=== PATIENT | female | born 1940 | race American Indian/Alaskan Native ===

== ENCOUNTER 2018-10-18 21:34 | Observation (INO) | payer MEDICARE ==
[2018-10-18 21:35] VITALS: BMI 33.3
--- NOTE | 2018-10-18 22:17 | C.PDOC ---
History Of Present Illness 78 year old female presents to the ER with a complaint of SOB and diaphoresis on exertion for the past few days, associated with intermittent palpitations. Denies chest pain. Chief Complaint (Nursing): Palpitations History Per: Patient History/Exam Limitations: no limitations Onset/Duration Of Symptoms: Days Current Symptoms Are (Timing): Still Present Initiating Event: Other (Not known) Exacerbating Factor(s): Exertion Current Respiratory Medications: See Home Med List Associated Symptoms: Sweating, Other (Palpitation). denies: Chest Pain Recent travel outside of the [place]: No Past Medical History Reviewed: Historical Data, Nursing Documentation, Vital Signs Vital Signs: Last Vital Signs Temp 97.8 F 10/18/18 21:40 Pulse 60 10/18/18 21:40 Resp 20 10/18/18 21:40 BP 216/78 H 10/18/18 21:40 Pulse Ox 99 10/18/18 21:40 - Medical History PMH: Fractures (toes), HTN, Hypercholesterolemia, Peripheral Edema Surgical History: Endoscopy - [facility] Procedures ANGIOPLASTY OF OTHER NON-CORONARY VESSEL(S) (07/25/15) CONTRAST ARTERIOGRAM-LEG (04/04/15) INSEJ [id number] PERIPHERAL NON-CORONARY VES STENT(S) (07/25/15) INSERTION OF TWO VASCULAR STENTS (07/25/15) PROCEDURE ON TWO VESSELS (07/25/15) Family History: States: Unknown Family Hx - Social History Hx Alcohol Use: No Hx Substance Use: No Review Of Systems Constitutional: Positive for: Sweats Cardiovascular: Positive for: Palpitations (Intermittent). Negative for: Chest Pain Respiratory: Positive for: SOB with Excertion Gastrointestinal: Negative for: Nausea, Vomiting Genitourinary: Negative for: Dysuria, Hematuria Neurological: Negative for: Weakness, Numbness Physical Exam - Physical Exam Appears: Non-toxic, No Acute Distress Skin: Normal Color, Warm, Dry Head: Atraumatic, Normacephalic Eye(s): bilateral: Normal Inspection Oral Mucosa: Moist Neck: Normal, Supple Chest: Symmetrical, No Tenderness Cardiovascular: Rhythm Regular Respiratory: Normal Breath Sounds, No Rales, No Rhonchi, No Wheezing Gastrointestinal/Abdominal: Soft, No Tenderness Back: No CVA Tenderness Extremity: Normal ROM (x4) Neurological/Psych: Oriented x3, Normal Speech ED Course And Treatment - Laboratory Results Result Diagrams: 12/04/18 22:35 10/18/18 22:35 ECG: Interpreted By Me, Viewed By Me ECG Rhythm: Sinus Bradycardia, 1st Degree HB ECG Interpretation: No Acute Changes Interpretation Of ECG: Sinus bradycardia with iSt degree AV block, LAD, RBBB.abnormal tracings. Rate From EC O2 Sat by Pulse Oximetry: 99 (Room air) Pulse Ox Interpretation: Normal - Radiology CXR: Interpreted by Me CXR Interpretation: Yes: No Acute Disease, Cardiomegaly, Other (globular heart,) Progress Note: EKG, blood work, and CXR ordered. Disposition Discussed With : Kacy Toussaint Doctor Will See Patient In The: Hospital Counseled Patient/Family Regarding: Diagnosis - Disposition Disposition: HOSPITALIZED Disposition Time: 00:31 Condition: STABLE Forms: [facility] (Liberian) - POA Present On Arrival: None - Clinical Impression Clinical Impression: Palpitations, Hypertension - Scribe Statement The provider has reviewed the documentation as recorded by the Scribsofía Angel All medical record entries made by the Linibsofía were at my direction and personally dictated by me. I have reviewed the chart and agree that the record accurately reflects my personal performance of the history, physical exam, medical decision making, and the department course for this patient. I have also personally directed, reviewed, and agree with the discharge instructions and disposition.
[2018-10-18 22:39] LABS: BASO # 0.1 K/uL (0.0-0.2); BASO % 0.6 % (0.0-2.0); EOS # 0.1 K/uL (0.0-0.7); EOS % 0.9 % (0.0-4.0); HEMOGLOBIN 11.3 g/dL (11.0-16.0); LYMPH # 2.8 K/uL (1.0-4.3); LYMPH % 32.4 % (20.0-40.0); MEAN CELL VOLUME 80.8 fL (81.0-99.0); MEAN CORPUSCULAR HEMOGLOBIN 26.2 pg (27.0-31.0); MEAN CORPUSCULAR HGB CONC 32.4 g/dL (33.0-37.0); MEAN PLATELET VOLUME 8.8 fL (7.2-11.7); MONO # 0.5 K/uL (0.0-0.8); MONO % 5.7 % (0.0-10.0); NEUT # 5.2 K/uL (1.8-7.0); NEUT % 60.4 % (50.0-75.0); RBC 4.31 Mil/uL (3.80-5.20); RED CELL DISTRIBUTION WIDTH 14.3 % (11.5-14.5); WHITE BLOOD COUNT 8.6 K/uL (4.8-10.8)
[2018-10-18 22:55] LABS: ALB/GLOB RATIO 1.2 (1.0-2.1); ALBUMIN 4.2 g/dL (3.5-5.0); ALT/SGPT 16 U/L (9-52); AST/SGOT 20 U/L (14-36); BLOOD UREA NITROGEN 21 mg/dL (7-17); CALCIUM 9.7 mg/dl (8.6-10.4); GFR NON-AFRICAN AMERICAN 53
[2018-10-18 23:08] LABS: D DIMER < 200 ng/mlDDU (0-243)
[2018-10-18 23:16] LABS: B-TYPE NATRIURETIC PEPTIDE 548 pg/mL (0-900)
[2018-10-18 23:35] LABS: PARTIAL THROMBOPLASTIN TIME 39 SECONDS (21-34); PROTHROMBIN TIME 10.7 SECONDS (9.7-12.2)
[2018-10-19 03:24] VITALS: RESP 20
[2018-10-19 08:42] LABS: CK-MB 0.74 ng/mL (0.0-3.38)
[2018-10-19] MEDS: (Novolog) Insulin Aspart, Recombinant 100 u/ml 10 ml vial SC SCH ×4 (08:55→21:36)
--- NOTE | 2018-10-19 09:38 | RAD ---
Chest x-ray two views HISTORY: Chest pain. COMPARISON: None available. FINDINGS: Mild venous congestion. Bibasilar breast shadows. Atherosclerotic calcification at the aortic knob. Tortuous aorta. Mild cardiomegaly. Degenerative changes in the spine and shoulders IMPRESSION: Mild venous congestion. Bibasilar breast shadows. Atherosclerotic calcification at the aortic knob. Tortuous aorta. Mild cardiomegaly.
[2018-10-19] MEDS ORDERED: Home Med 1 UNIT (Metformin [Glucophage] 1,000 MG) PO SCH (10:00)
[2018-10-19] MEDS: Cilostazol 50 mg Tab UD PO SCH ×2 (10:13→18:31)
--- NOTE | 2018-10-19 11:34 | CARD ---
APPROVED REPORT Date of service: 10/18/2018 EKG Measurement Heart [id number] <Conclusion> Sinus bradycardia with 1st degree AV block with premature atrial complexes Left axis deviation Right bundle branch block Minimal voltage criteria for LVH, may be normal variant Anterior infarct, age undetermined Abnormal ECG
--- NOTE | 2018-10-19 14:29 | CP.PCM.PN ---
Subjective - Date & Time of Evaluation Date of Evaluation: 10/19/18 Time of Evaluation: 09:20 - Subjective Subjective: Medicine progress note ( Dr. Toussaint's service) Patient was seen and examined at bedside. Patient reports that she is doing well with no acute issues or complain. Currently, patient denies any symptoms of chest pain, palpitations, shortness of breath, headache or blurry vision. HPI: Patient is a 78 year old AA female with past medical history of HTN, PVD, Right knee OA and DM, who was sent in by her PMD for elevated blood pressure with systolic in the 200s. In addition, patient has noted palpitations as well intermittently for a week. Patient states that BP check at home reads a systolic ranging in the 150s. Patient reports that she is compliant with her medications, however, she needs to work on her diet. On admission, patient states that she did have a diffuse headache, fatigue and palpitations. PMD: Dr. Toussaint PMHx: HTN, PVD, Right knee OA and DM PSHx: Right arm cyst removal, Attempted angioplasty of chronic total occulusion of the distal left superficial femoral artery (04/01) and Angioplasty of LLE vessels (07/2015) FHx: Mother, HTn, at age 97 Medications: Metoprolol succinate 100mg PO daily, Clonidine 0.2mg PO TID, Losartan 100mg PO daily, Hydralazine 50mg PO TID, Cilostazol 50mg PO BID, Metformin 1,000mg PO BID and Glipizide 10mg PO daily Allergies: Iodine Social Hx: Retired, Lives alone. Denies current or former use of tobacco, illicit drugs and ETOH Objective - Vital Signs/Intake and Output Vital Signs (last 24 hours): Temp Pulse Resp BP Pulse Ox 98.3 F 59 L 20 188/78 H 95 10/19/18 08:02 10/19/18 08:02 10/19/18 08:02 10/19/18 08:02 10/19/18 08:02 - Medications Medications: Current Medications Aspirin (Aspirin Chewable) 81 mg PO DAILY [facility] Last Admin: 10/19/18 10:13 Dose: 81 mg Cilostazol (Pletal) 50 mg PO BID [facility] Last Admin: 10/19/18 10:13 Dose: 50 mg Clonidine HCl (Catapres) 0.2 mg PO TID [facility] Last Admin: 10/19/18 13:53 Dose: Not Given Glipizide (Glucotrol) 10 mg PO BID [facility] Last Admin: 10/19/18 10:13 Dose: 10 mg Heparin Sodium (Porcine) (Heparin) 5,000 units SC Q8 [facility] Last Admin: 10/19/18 13:49 Dose: 5,000 units Hydralazine HCl (Apresoline) 50 mg PO Q8 [facility] Last Admin: 10/19/18 13:49 Dose: 50 mg Insulin Aspart (Novolog) 0 unit SC ACHS [facility]; Protocol Last Admin: 10/19/18 12:36 Dose: 1 unit Losartan Potassium (Cozaar) 100 mg PO DAILY [facility] Last Admin: 10/19/18 10:13 Dose: 100 mg [facility] Labs Labs: 10/18/18 22:35 10/18/18 22:35 PT 10.7 SECONDS (9.7-12.2) 10/18/18 22:35 INR 1.0 10/18/18 22:35 APTT 39 SECONDS (21-34) H 10/18/18 22:35 - Constitutional Appears: Well, No Acute Distress - Head Exam Head Exam: ATRAUMATIC, NORMAL INSPECTION - Eye Exam Eye Exam: EOMI, Normal appearance - ENT Exam ENT Exam: Mucous Membranes Moist - Respiratory Exam Respiratory Exam: Clear to Ausculation Bilateral, NORMAL BREATHING PATTERN. absent: Decreased Breath Sounds, Prolonged Expiratory Phase, Rhonchi, Wheezes, Respiratory Distress - Cardiovascular Exam Cardiovascular Exam: REGULAR RHYTHM, +S1, +S2 - GI/Abdominal Exam GI & Abdominal Exam: Soft, Normal Bowel Sounds. absent: Distended, Firm, Guarding, Rigid, Tenderness - Extremities Exam Extremities Exam: Normal Inspection. absent: Calf Tenderness, Pedal Edema - Back Exam Back Exam: NORMAL INSPECTION. absent: CVA tenderness (L), CVA tenderness (R) - Neurological Exam Neurological Exam: Alert, Awake, Oriented x3 - Psychiatric Exam Psychiatric exam: Normal Affect - Skin Skin Exam: Normal Color Assessment and Plan (1) Uncontrolled hypertension Assessment & Plan: Consultation: - Cardiology, Dr. Jones---> Help appreciated * Management as per recommendation Monitor with Vital signs Q4H Clonidine 0.2mg PO TID Hydralazine 50mg PO Q8H Cozaar 100mg PO daily ASA 81mg PO daily Status: Acute (2) Bradycardia with 51-60 beats per minute Assessment & Plan: Asymptomatic Consultation: - Cardiology, Dr. Jones---> Help appreciated * Management as per recommendation Status: Acute (3) Diabetes mellitus Assessment & Plan: Metformin 1,000mg PO BID Glipizide 10mg PO daily Accuchecks ACHS Status: Acute (4) History of peripheral vascular disease Assessment & Plan: Stents placement 2014 ASA 81mg PO daily Cilostazol 50mg PO BID Status: Acute (5) Prophylactic measure Assessment & Plan: GI: Not indicated DVT: Heparin 5,000 units SC Q8H All plans and management discussed with Dr. Toussaint Status: Acute
[2018-10-19 17:41] LABS: CK-MB 0.84 ng/mL (0.0-3.38)
--- NOTE | 2018-10-19 18:28 | CP.PCM.CON ---
History of Present Illness - History of Present Illness History of Present Illness: I was asked to see patient by Dr Toussaint. Patient was seen 10/19/181824 Patient is a 78 year old female with HTN, hypercholesterolemnia, CAD s/p endovascular intervention of the left lower extremity who presents withuncontrolled HTN. The patient was going to her doctor's office for a routine visit, when she developed progressive headaceh. 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 She had associated chest pain. The patient presented to the hospital for furhter management. SHe is currently sitting in bed with family at the bedside. Review of Systems - Constitutional Constitutional: absent: As Per HPI, Anorexia, Chills, Daytime Sleepiness, Excessive Sweating, Fatigue, Fever, Frequent Falls, Headache, Increased Appetite, Lethargy, Malaise, Night Sweats, Snoring, Sleep Apnea, Weight Gain, Weight Loss, Weakness, Other - EENT Eyes: absent: As Per HPI, Blind Spots, Blurred Vision, Change in Vision, Decreased Night Vision, Diplopia, Discharge, Dry Eye, Exophthalmos, Floaters, Irritation, Itchy Eyes, Loss of Peripheral Vision, Pain, Photophobia, Requires Corrective Lenses, Sees Flashes, Spots in Vision, Tunnel Vision, Other Visual Disturbances, Loss of Vision, Other Ears: absent: As Per HPI, Decreased Hearing, Ear Discharge, Ear Pain, Tinnitus, Abnormal Hearing, Disequilibrium, Dizziness, Other Nose/Mouth/Throat: absent: As Per HPI, Epistaxis, Nasal Congestion, Nasal Discharge, Nasal Obstruction, Nasal Trauma, Nose Pain, Post Nasal Drip, Sinus Pain, Sinus Pressure, Bleeding Gums, Change in Voice, Dental Pain, Dry Mouth, Dysphagia, Halitosis, Hoarsness, Lip Swelling, Mouth Lesions, Mouth Pain, Odynophagia, Sore Throat, Throat Swelling, Tongue Swelling, Facial Pain, Neck Pain, Neck Mass, Other - Breasts Breasts: absent: As Per HPI, Change in Shape, Mass, Pain, Nipple Discharge, Nipple Inversion, Skin Changes, Swelling, Other - Cardiovascular Cardiovascular: absent: As Per HPI, Acrocyanosis, Chest Pain, Chest Pain at Rest, Chest Pain with Activity, Claudication, Diaphoresis, Dyspnea, Dyspnea on Exertion, Edema, Irregular Heart Rhythm, Pain Radiating to Arm/Neck/Jaw, Leg Edema, Leg Ulcers, Lightheadedness, Orthopnea, Palpitations, Paroxysmal Nocturnal Dyspnea, Pedal Edema, Radiating Pain, Rapid Heart Rate, Slow Heart Rate, Syncope, Other - Respiratory Respiratory: absent: As Per HPI, Cough, Dyspnea, Hemoptysis, Dyspnea on Exer tion, Wheezing, Snoring, Stridor, Pain on Inspiration, Chest Congestion, Excessive Mucous Production, Change in Mucous Color, Pain with Coughing, Other - Gastrointestinal Gastrointestinal: absent: As Per HPI, Abdominal Pain, Belching, Bloating, Change in Bowel Habits, Change in Stool Character, Coffee Ground Emesis, Constipation, Cramping, Diarrhea, Dyspepsia, Dysphagia, Early Satiety, Excessive Flatus, Fecal Incontinence, Heartburn, Hematemesis, Hematochezia, Loose Stools, Melena, Nausea, Odynophagia, Temesmus, Vomiting, Other - Genitourinary Genitourinary: absent: As Per HPI, Change in Urinary Stream, Difficulty Urinating, Dysuria, Flank Pain, Hematuria, Pyuria, Nocturia, Urinary Incontinence, Urinary Frequency, Urinary Hesitance, Urinary Urgency, Voiding Freq/Small Amts, Freq UTI, Hx Renal/Bladder Calculi, Hx /Renal Surgery, Bladder Distension, Other - Musculoskeletal Musculoskeletal: absent: As Per HPI, Abnormal Gait, Arthralgias, Atrophy, Back Pain, Deformity, Joint Swelling, Limited Range of Motion, Loss of Height, Muscle Cramps, Muscle Weakness, Myalgias, Neck Pain, Numbness, Radiating Pain into Limb, Stiffness, Tingling, Other - Integumentary Integumentary: absent: As Per HPI, Acne, Alopecia, Bleeding Lesions, Change in Hair, Change in Nails, Change in Pigmentation, Changing Lesions, Dry Skin, Erythema, Furuncle, Hirsutism, Lesions, New Lesions, Non-Healing Lesions, Photosensitivity, Pruritus, Rash, Skin Pain, Skin Ulcer, Sores, Striae, Swelling, Unusual Bruising, Wounds, Jaundice, Other - Neurological Neurological: absent: As Per HPI, Abnormal Gait, Abnormal Hearing, Abnormal Movements, Abnormal Speech, Behavioral Changes, Burning Sensations, Confusion, Convulsions, Disequilibrium, Dizziness, Numbness, Focal Weakness, Frequent Falls, Headaches, Lack of Coordination, Loss of Vision, Memory Loss, Paresthesias, Radicular Pain, Restless Legs, Sensory Deficit, Syncope, Tingling, Tremor, Vertigo, Weakness, Other Visual Disturbances, Other - Psychiatric Psychiatric: absent: As Per HPI, Abnormal Sleep Pattern, Anhedonia, Anxiety, Auditory Hallucinations, Behavioral Changes, Change in Appetite, Change in Libido, Confusion, Depression, Difficulty Concentrating, Hallucinations, Homicidal Ideation, Hopelessness, Irritability, Memory Loss, Mood Swings, Panic Attacks, Paranoia, Suicidal Ideation, Visual Hallucinations, Tactile Hallucinations, Other - Endocrine Endocrine: absent: As Per HPI, Change in Body Appearance, Change in Libido, Cold Intolorance, Deepening of Voice, Excessive Sweating, Fatigue, Flushing, Heat Intolorance, Increase in Ring/Shoe/Hat Size, Palpitations, Polydipsia, Polyphagia, Polyuria, Other - Hematologic/Lymphatic Hematologic: absent: As Per HPI, Easy Bleeding, Easy Bruising, Lymphadenopathy, Other Past Patient History - Infectious Disease Hx of Infectious Diseases: None - Past Medical History & Family History Past Medical History?: Yes - Past Social History Smoking Status: Never Smoked - CARDIAC Hx Hypercholesterolemia: Yes Hx Hypertension: Yes - HEENT Hx HEENT Problems: No - ENDOCRINE/METABOLIC Hx Endocrine Disorders: Yes Hx Diabetes Mellitus Type 2: Yes - INTEGUMENTARY Hx Dermatological Problems: No - MUSCULOSKELETAL/RHEUMATOLOGICAL Hx Fractures: Yes (toes) - GENITOURINARY/GYNECOLOGICAL Hx Genitourinary Disorders: No - PSYCHIATRIC Hx Substance Use: No - SURGICAL HISTORY Hx Surgeries: Yes Hx Angiogram: Yes Hx Breast Biopsy: Yes Other/Comment: cyst from arm - ANESTHESIA Hx Anesthesia: Yes Hx Anesthesia Reactions: No Hx Malignant Hyperthermia: No Meds Allergies/Adverse Reactions: Allergies Allergy/AdvReac Type Severity Reaction Status Date / Time iodine Allergy Verified 10/18/18 21:45 - Medications Medications: Current Medications Aspirin (Aspirin Chewable) 81 mg PO DAILY [facility] Last Admin: 10/19/18 10:13 Dose: 81 mg Cilostazol (Pletal) 50 mg PO BID [facility] Last Admin: 10/19/18 10:13 Dose: 50 mg Clonidine HCl (Catapres) 0.2 mg PO TID [facility] Last Admin: 10/19/18 14:54 Dose: 0.2 mg Glipizide (Glucotrol) 10 mg PO BID [facility] Last Admin: 10/19/18 10:13 Dose: 10 mg Heparin Sodium (Porcine) (Heparin) 5,000 units SC Q8 [facility] Last Admin: 10/19/18 13:49 Dose: 5,000 units Hydralazine HCl (Apresoline) 100 mg PO Q8 [facility] Insulin Aspart (Novolog) 0 unit SC ACHS [facility]; Protocol Last Admin: 10/19/18 12:36 Dose: 1 unit Losartan Potassium (Cozaar) 100 mg PO DAILY [facility] Last Admin: 10/19/18 10:13 Dose: 100 mg Metformin HCl (Glucophage) 1,000 mg PO BIDCC [facility] Physical Exam - Constitutional Appears: Non-toxic - Head Exam Head Exam: NORMAL INSPECTION - Eye Exam Eye Exam: Normal appearance - ENT Exam ENT Exam: Mucous Membranes Moist, Normal Exam, Normal Oropharynx - Neck Exam Neck exam: Positive for: Full Rom, Normal Inspection. Negative for: Lymphadenopathy, Thyromegaly - Respiratory Exam Respiratory Exam: Clear to Auscultation Bilateral, NORMAL BREATHING PATTERN. absent: Rales, Rhonchi - Cardiovascular Exam Cardiovascular Exam: REGULAR RHYTHM, Systolic Murmur - GI/Abdominal Exam GI & Abdominal Exam: Normal Bowel Sounds, Soft - Rectal Exam Rectal Exam: Deferred - Extremities Exam Extremities exam: Positive for: full ROM, normal inspection. Negative for: pedal edema - Back Exam Back exam: NORMAL INSPECTION - Neurological Exam Neurological exam: Alert, Normal Gait, Oriented x3 - Psychiatric Exam Psychiatric exam: Normal Affect, Normal Mood - Skin Skin Exam: Normal Color Results - Vital Signs Recent Vital Signs: Last Vital Signs Temp 97.9 F 10/19/18 16:00 Pulse 58 L 10/19/18 16:00 Resp 20 10/19/18 16:00 BP 187/69 H 10/19/18 16:00 Pulse Ox 97 10/19/18 16:00 - Labs Result Diagrams: 10/18/18 22:35 10/18/18 22:35 Labs: Laboratory Results - last 24 hr 10/18/18 10/18/18 10/18/18 22:35 22:35 22:35 WBC 8.6 RBC 4.31 Hgb 11.3 Hct 34.8 MCV 80.8 L MCH 26.2 L MCHC 32.4 L RDW 14.3 Plt Count 248 MPV 8.8 Neut % (Auto) 60.4 Lymph % (Auto) 32.4 [place] % (Auto) 5.7 Eos % (Auto) 0.9 Baso % (Auto) 0.6 Neut # (Auto) 5.2 Lymph # (Auto) 2.8 [place] # (Auto) 0.5 Eos # (Auto) 0.1 Baso # (Auto) 0.1 PT 10.7 INR 1.0 APTT 39 H D-Dimer, Quantitative < 200 Sodium 138 Potassium 4.4 Chloride 97 L Carbon Dioxide 29 Anion Gap 16 BUN 21 H Creatinine 1.0 Est GFR ( Amer) > 60 Est GFR (Non-Af Amer) 53 POC Glucose (mg/dL) Random Glucose 192 H Hemoglobin A1c Calcium 9.7 Total Bilirubin 0.5 AST 20 ALT 16 Alkaline Phosphatase 51 Total Creatine Kinase CK-MB (Mass) Troponin I < 0.0120 NT-Pro-B Natriuret Pep 548 Total Protein 7.8 Albumin 4.2 Globulin 3.6 Albumin/Globulin Ratio 1.2 10/19/18 10/19/18 10/19/18 06:07 07:58 11:41 WBC RBC Hgb Hct MCV MCH MCHC RDW Plt Count MPV Neut % (Auto) Lymph % (Auto) [place] % (Auto) Eos % (Auto) Baso % (Auto) Neut # (Auto) Lymph # (Auto) [place] # (Auto) Eos # (Auto) Baso # (Auto) PT INR APTT D-Dimer, Quantitative Sodium Potassium Chloride Carbon Dioxide Anion Gap BUN Creatinine Est GFR ( Amer) Est GFR (Non-Af Amer) POC Glucose (mg/dL) 158 H 188 H Random Glucose Hemoglobin A1c Calcium Total Bilirubin AST ALT Alkaline Phosphatase Total Creatine Kinase 50 CK-MB (Mass) 0.74 Troponin I < 0.0120 NT-Pro-B Natriuret Pep Total Protein Albumin Globulin Albumin/Globulin Ratio 10/19/18 10/19/18 10/19/18 16:49 16:56 16:56 WBC RBC Hgb Hct MCV MCH MCHC RDW Plt Count MPV Neut % (Auto) Lymph % (Auto) [place] % (Auto) Eos % (Auto) Baso % (Auto) Neut # (Auto) Lymph # (Auto) [place] # (Auto) Eos # (Auto) Baso # (Auto) PT INR APTT D-Dimer, Quantitative Sodium Potassium Chloride Carbon Dioxide Anion Gap BUN Creatinine Est GFR ( Amer) Est GFR (Non-Af Amer) POC Glucose (mg/dL) 215 H Random Glucose Hemoglobin A1c 8.2 H Calcium Total Bilirubin AST ALT Alkaline Phosphatase Total Creatine Kinase 53 CK-MB (Mass) 0.84 Troponin I < 0.0120 NT-Pro-B Natriuret Pep Total Protein Albumin Globulin Albumin/Globulin Ratio - EKG Data EKG Interpreted by: Myself EKG shows normal: Sinus rhythm Assessment & Plan (1) Hypertension Assessment and Plan: will need improved blood pressure control..will change hydralazine to 100 mg TID Status: Acute (2) Hypercholesterolemia Assessment and Plan: recommend statin therapy. goal LDL <100 Status: Acute (3) Peripheral vascular disease Assessment and Plan: previous intervention of the L SFA and popliteal. ASA/Plavix. outaptient vascular testing Status: Acute (4) Chest pain Assessment and Plan: negative cardiac enzymes. stress test last year was negative for ischemia. likely can d/c home tomorrow if blood pressure controlled. Status: Acute
[2018-10-20 08:04] VITALS: TEMP 98
[2018-10-20 08:14] LABS: BASO # 0.1 K/uL (0.0-0.2); BASO % 1.2 % (0.0-2.0); EOS # 0.1 K/uL (0.0-0.7); EOS % 1.2 % (0.0-4.0); HEMOGLOBIN 11.6 g/dL (11.0-16.0); LYMPH # 3.5 K/uL (1.0-4.3); LYMPH % 43.6 % (20.0-40.0); MEAN CELL VOLUME 81.6 fL (81.0-99.0); MEAN CORPUSCULAR HEMOGLOBIN 26.8 pg (27.0-31.0); MEAN CORPUSCULAR HGB CONC 32.8 g/dL (33.0-37.0); MEAN PLATELET VOLUME 8.9 fL (7.2-11.7); MONO # 0.4 K/uL (0.0-0.8); MONO % 5.1 % (0.0-10.0); NEUT % 48.9 % (50.0-75.0); RBC 4.34 Mil/uL (3.80-5.20); RED CELL DISTRIBUTION WIDTH 14.4 % (11.5-14.5); WHITE BLOOD COUNT 8.1 K/uL (4.8-10.8)
[2018-10-20] MEDS: (Novolog) Insulin Aspart, Recombinant 100 u/ml 10 ml vial SC SCH ×2 (09:06→12:47)
[2018-10-20 09:16] LABS: ALB/GLOB RATIO 1.1 (1.0-2.1); ALBUMIN 3.8 g/dL (3.5-5.0); ALT/SGPT 17 U/L (9-52); AST/SGOT 21 U/L (14-36); BLOOD UREA NITROGEN 21 mg/dL (7-17); CALCIUM 9.4 mg/dl (8.6-10.4); GFR NON-AFRICAN AMERICAN > 60
--- NOTE | 2018-10-20 10:09 | HP ---
HISTORY OF PRESENT ILLNESS: An 78-year-old female admitted to the hospital with chief complaint of cardiac arrhythmia, uncontrolled hypertension. The patient came to the ER, advised admission. The patient used clonidine, Lopressor, and hydralazine. PHYSICAL EXAMINATION: GENERAL: The patient is awake, alert, and oriented. VITAL SIGNS: Temperature 98, pulse 90. HEENT: Within normal limits. NECK: Supple. CHEST: Symmetrical. HEART: Regular. ABDOMEN: Soft. EXTREMITIES: No edema. The patient with uncontrolled hypertension, cardiac arrhythmia. The patient to be in bed rest, supportive care, cardiac evaluation. Kacy oTussaint MD
[2018-10-20] MEDS: Cilostazol 50 mg Tab UD PO SCH (10:49)
--- NOTE | 2018-10-20 11:13 | CP.PCM.PN ---
Subjective - Date & Time of Evaluation Date of Evaluation: 10/20/18 Time of Evaluation: 07:00 - Subjective Subjective: Resident Progress Note for Dr. Toussaint Patient seen and examined at bedside. No acute events reported overnight. Patient is resting in bed comfortably. She denies having dizziness, headache, shortness of breath, nausea, vomiting, abdominal pain, or vision changes. Objective - Vital Signs/Intake and Output Vital Signs (last 24 hours): Temp Pulse Resp BP Pulse Ox 98.0 F 71 20 165/66 H 98 10/20/18 07:35 10/20/18 07:35 10/20/18 07:35 10/20/18 07:35 10/20/18 07:35 - Medications Medications: Current Medications Aspirin (Aspirin Chewable) 81 mg PO DAILY [facility] Last Admin: 10/20/18 10:49 Dose: 81 mg Cilostazol (Pletal) 50 mg PO BID [facility] Last Admin: 10/20/18 10:49 Dose: 50 mg Clonidine HCl (Catapres) 0.2 mg PO TID [facility] Last Admin: 10/20/18 10:49 Dose: 0.2 mg Glipizide (Glucotrol) 10 mg PO BID [facility] Last Admin: 10/20/18 10:49 Dose: 10 mg Heparin Sodium (Porcine) (Heparin) 5,000 units SC Q8 [facility] Last Admin: 10/20/18 05:54 Dose: 5,000 units Hydralazine HCl (Apresoline) 100 mg PO Q8 [facility] Last Admin: 10/20/18 05:55 Dose: 100 mg Insulin Aspart (Novolog) 0 unit SC [facility]; Protocol Last Admin: 10/20/18 09:06 Dose: 1 unit Losartan Potassium (Cozaar) 100 mg PO DAILY [facility] Last Admin: 10/20/18 10:49 Dose: 100 mg [facility] Admin: 10/20/18 09:06 Dose: 1,000 mg - Labs Labs: 10/20/18 08:07 10/20/18 08:07 PT 10.7 SECONDS (9.7-12.2) 10/18/18 22:35 INR 1.0 10/18/18 22:35 APTT 39 SECONDS (21-34) H 10/18/18 22:35 - Additional Findings Additional findings: - Constitutional Appears: Well, No Acute Distress - Head Exam Head Exam: ATRAUMATIC, NORMAL INSPECTION - Eye Exam Eye Exam: EOMI, Normal appearance - ENT Exam ENT Exam: Mucous Membranes Moist - Respiratory Exam Respiratory Exam: Clear to Ausculation Bilateral, NORMAL BREATHING PATTERN. absent: Decreased Breath Sounds, Prolonged Expiratory Phase, Rhonchi, Wheezes, Respiratory Distress - Cardiovascular Exam Cardiovascular Exam: REGULAR RHYTHM, +S1, +S2 - GI/Abdominal Exam GI & Abdominal Exam: Soft, Normal Bowel Sounds. absent: Distended, Firm, Guarding, Rigid, Tenderness - Extremities Exam Extremities Exam: Normal Inspection. absent: Calf Tenderness, Pedal Edema - Back Exam Back Exam: NORMAL INSPECTION. absent: CVA tenderness (L), CVA tenderness (R) - Neurological Exam Neurological Exam: Alert, Awake, Oriented x3 - Psychiatric Exam Psychiatric exam: Normal Affect - Skin Skin Exam: Normal Color Assessment and Plan - Assessment and Plan (Free Text) Assessment: Assessment and Plan (1) Uncontrolled hypertension Assessment & Plan: BP improved today Consultation: - Cardiology, Dr. Jones---> Help appreciated * Management as per recommendation Monitor with Vital signs Q4H Clonidine 0.2mg PO TID Hydralazine 100mg PO Q8H Cozaar 100mg PO daily ASA 81mg PO daily (2) Bradycardia with 51-60 beats per minute Assessment & Plan: Asymptomatic Consultation: - Cardiology, Dr. Jones---> Help appreciated * Management as per recommendation (3) Diabetes mellitus Assessment & Plan: Metformin 1,000mg PO BID Glipizide 10mg PO daily Accuchecks ACHS (4) History of peripheral vascular disease Assessment & Plan: Stents placement 2014 ASA 81mg PO daily Cilostazol 50mg PO BID (5) Prophylactic measure Assessment & Plan: GI: Not indicated DVT: Heparin 5,000 units SC Q8H Dispo: Patient will be discharged home with Losartan/Hctz 100-25mg. Follow up instructions were given to the patient. All plans and management discussed with Dr. Toussaint
--- NOTE | 2018-10-20 17:00 | CARD ---
APPROVED REPORT Date of service: 10/19/2018 EXAM: Two-dimensional and M-mode echocardiogram with Doppler and color Doppler. Other Information Quality : GoodRhythm : INDICATION Palpitations RISK FACTORS Hypertension 2D DIMENSIONS IVSd1.1 (0.7-1.1cm)LVDd4.5 (3.9-5.9cm) PWd1.1 (0.7-1.1cm)LA Ygyhuo69 (18-58mL) LVDs2.8 (2.5-4.0cm)FS (%) 36.9 % LVEF (%)66.9 (>50%)LVEF (Smith's)75 % M-Mode DIMENSIONS Left Atrium (MM)3.26 (2.5-4.0cm)IVSd1.01 (0.7-1.1cm) Aortic Root2.96 (2.2-3.7cm)LVDd5.41 (4.0-5.6cm) Aortic Cusp Exc.1.77 (1.5-2.0cm)PWd0.86 (0.7-1.1cm) FS (%) 49 %LVDs2.78 (2.0-3.8cm) LVEF (%)80 (>50%) Mitral Valve MV E Ieapaxjo062.1cm/sMV A Rbwkxiky990.3cm/sE/A ratio1.0 TDI Lateral E' Peak V4.61cm/sMedial E' Peak V3.99cm/sE/Lateral E'25.6 E/Medial E'29.6 Tricuspid Valve TR Peak Fsajdkyg310pj/sTR Peak Gr.[id number] LEFT VENTRICLE The left ventricle is normal size. There is normal left ventricular wall thickness. The Ejection Fraction is 60-65%. There is normal LV segmental wall motion. Transmitral Doppler flow pattern is Grade II-pseudonormal filling dynamics. The left atrial pressure is moderately elevated. RIGHT VENTRICLE The right ventricle is normal size. The right ventricular systolic function is normal. ATRIA The left atrium size is normal. The right atrium size is normal. The interatrial septum is intact with no evidence for an atrial septal defect. AORTIC VALVE The aortic valve is moderately calcified. The aortic valve is trileaflet. No aortic regurgitation is present. MITRAL VALVE The mitral valve is normal in structure. Mitral regurgitation is mild. TRICUSPID VALVE The tricuspid valve is normal in structure. There is mild tricuspid regurgitation. Right ventricular systolic pressure is estimated at 47 mmHg. There is moderate pulmonary hypertension. PULMONIC VALVE The pulmonary valve is normal in structure. There is mild pulmonic valvular regurgitation. GREAT VESSELS The aortic root is normal size. The aortic root displays mild to moderate sclerocalcific changes of the aortic root. ivc is mildly dilated. PERICARDIAL EFFUSION There is no pericardial effusion. <Conclusion> The left ventricle is normal size. The Ejection Fraction is 60-65%. Transmitral Doppler flow pattern is Grade II-pseudonormal filling dynamics. The left atrial pressure is moderately elevated. The aortic valve is moderately calcified. Mitral regurgitation is mild. There is mild tricuspid regurgitation. Right ventricular systolic pressure is estimated at 47 mmHg. There is moderate pulmonary hypertension. The aortic root is normal size. The aortic root displays mild to moderate sclerocalcific changes of the aortic root. ivc is mildly dilated. There is no pericardial effusion.
[2018-10-20 17:18] VITALS: BP 201/76; PULSE 84; O2SAT 93
== END 2018-10-20 15:00 | disposition home or self-care (01) ==
LOC: C.ER 21:34 → C.5S 10-19 00:32
PROVIDERS: ADMIT Internal Medicine Pulmonary Disease; ATTEND Internal Medicine Pulmonary Disease
DX: I10 Essential (primary) hypertension (principal); E11.51 Type 2 diabetes mellitus with diabetic peripheral angiopathy without gangrene; E78.00 Pure hypercholesterolemia, unspecified; I25.10 Atherosclerotic heart disease of native coronary artery without angina pectoris; M17.11 Unilateral primary osteoarthritis, right knee; I71.9 Aortic aneurysm of unspecified site, without rupture; I49.9 Cardiac arrhythmia, unspecified
CPT/HCPCS: 36415; 71046; 80053; 82948; 83036; 83735; 83880; 84100; 84484; 85025; 85378; 85610; 85730; 93005; 93306; 97116; 97162; 97530; 99285; G0378; G8978; G8979; J1644

== ENCOUNTER 2019-01-02 13:22 | Inpatient (IN) | payer MEDICARE ==
[2019-01-02 13:23] VITALS: BMI 33.3
[2019-01-02] MEDS ORDERED: Sodium Chloride 0.9% 1,000 ML IV ONE (13:50)
[2019-01-02 14:18] LABS: BASO % 0.3 % (0.0-2.0); LYMPH # 1.1 K/uL (1.0-4.3); LYMPH % 14.1 % (20.0-40.0); MEAN CELL VOLUME 82.9 fL (81.0-99.0); MEAN CORPUSCULAR HEMOGLOBIN 26.1 pg (27.0-31.0); MEAN CORPUSCULAR HGB CONC 31.4 g/dL (33.0-37.0); MEAN PLATELET VOLUME 9.4 fL (7.2-11.7); MONO # 0.2 K/uL (0.0-0.8); MONO % 2.1 % (0.0-10.0); NEUT # 6.7 K/uL (1.8-7.0); NEUT % 83.5 % (50.0-75.0); RBC 5.26 Mil/uL (3.80-5.20); RED CELL DISTRIBUTION WIDTH 14.5 % (11.5-14.5)
[2019-01-02 14:19] LABS: HEMOGLOBIN 13.7 g/dL (11.0-16.0)
[2019-01-02 14:31] LABS: ALB/GLOB RATIO 1.2 (1.0-2.1); ALT/SGPT < 6 U/L (9-52); AST/SGOT 26 U/L (14-36); BLOOD UREA NITROGEN 17 mg/dL (7-17); GFR NON-AFRICAN AMERICAN > 60; LIPASE 34 U/L (23-300)
[2019-01-02 14:43] LABS: B-TYPE NATRIURETIC PEPTIDE 565 pg/mL (0-900)
[2019-01-02 16:01] LABS: SQUAMOUS EPITHIAL 1 /hpf (0-5); URINE BACTERIA RARE (<OCC); URINE BILIRUBIN NEGATIVE (NEGATIVE); URINE BLOOD NEGATIVE (NEGATIVE); URINE CLARITY Clear (Clear); URINE COLOR Straw (YELLOW); URINE GLUCOSE (UA) 3+ mg/dL (Normal); URINE LEUKOCYTE ESTERASE NEG Leu/uL (Negative); URINE PROTEIN 2+ mg/dL (NEGATIVE); URINE UROBILINOGEN NORMAL mg/dL (0.2-1.0)
--- NOTE | 2019-01-02 16:20 | CT ---
PROCEDURE: CT Abdomen and Pelvis without Oral or IV contrast. HISTORY: nausea/vomiting COMPARISON: CT abdomen and pelvis with IV contrast performed 12/30/16 TECHNIQUE: Contiguous axial images of the abdomen and pelvis. No oral or IV contrast administered. Coronal and Sagittal reformats generated and reviewed. Radiation dose: Total exam DLP = 1144.86 mGy-cm. This CT exam was performed using one or more of the following dose reduction techniques: Automated exposure control, adjustment of the mA and/or kV according to patient size, and/or use of iterative reconstruction technique. FINDINGS: There is limited evaluation of the solid organs without the administration of IV contrast. LOWER THORAX: No visible consolidation, pleural effusion, or pneumothorax. Moderate hiatal hernia. LIVER: Unremarkable unenhanced appearance. GALLBLADDER AND BILE DUCTS: Unremarkable unenhanced appearance. PANCREAS: Unremarkable unenhanced appearance. SPLEEN: 9 mm probable splenule. Otherwise unremarkable unenhanced appearance. ADRENALS: Nodular hypertrophy of the left adrenal gland. Mild hypertrophy of the right adrenal gland. KIDNEYS AND URETERS: No hydronephrosis or obstructing renal calculus. BLADDER: The urinary bladder appears unremarkable. REPRODUCTIVE: Uterus is present. APPENDIX: The appendix appears within normal limits of caliber. No secondary signs of acute appendicitis. BOWEL: The stomach is nondistended. Lack of oral contrast limits evaluation for bowel pathology. The bowel loops appear within normal limits of caliber without evidence of intestinal obstruction. PERITONEUM: No significant free fluid. No definite free air. LYMPH NODES: No bulky lymphadenopathy identified. VASCULATURE: Atherosclerotic calcifications of the aorta and branches. No aortic aneurysm. BONES: Grade 1 anterolisthesis of L4 on L5. Mild degenerative changes. OTHER FINDINGS: Pelvic calcifications, likely phleboliths. IMPRESSION: Nodular hypertrophy of the left adrenal gland. Mild hypertrophy of the right adrenal gland. Moderate hiatal hernia. Additional incidental findings as above.
--- NOTE | 2019-01-02 17:26 | CP.PCM.HP ---
<Sariah Casillas - Last Filed: 01/02/19 19:13> History of Present Illness - History of Present Illness History of Present Illness: H&P note for Dr. Yin (covering for Dr. Toussaint) HPI: 78 year old female with past medical history of DM Type II, HTN, PVD who presents to the ER for vomiting and diarrhea. Patient states her symptoms started yesterday after she went out to eat lunch. She states she has not been able to stop vomiting since yesterday. She denies blood in her vomit. She st ates she has had multiple episodes of loose stools since yesterday evening and her previous bowel movement was this morning. She has not been able to eat, drink or take her medications due to the nausea and vomiting. She denies any sick contacts or anyone with similar symptoms. She denies chest pain, dyspnea, fever, chills or abdominal pain. PMD: Dr. Toussaint Past Medical History: DM Type II, HTN, PVD, Right knee OA Past Surgical History: Right arm cyst removal, Attempted angioplasty of chronic total occulusion of the distal left superficial femoral artery (04/01) and Angioplasty of LLE vessels (07/2015) Family History: Mother, HTn, at age 97 Medications: Clonidine 0.2mg PO TID, Losartan 100mg PO daily, HCTZ 25po daily; Hydralazine 100mg PO q8h, Cilostazol 50mg PO BID, Metformin 1,000mg PO BID; Glipizide 10mg PO bid; Simvastatin 20mg HS Allergies: Iodine Social History: Retired, Lives alone. Denies current or former use of tobacco. Denies illicit drug or alcohol use. Present on Admission - Present on Admission Any Indicators Present on Admission: No Review of Systems - Constitutional Constitutional: absent: Chills, Fever - Cardiovascular Cardiovascular: absent: Chest Pain, Dyspnea, Palpitations, Pedal Edema - Respiratory Respiratory: absent: Dyspnea - Gastrointestinal Gastrointestinal: Loose Stools, Nausea, Vomiting. absent: Constipation, Hematemesis, Hematochezia - Genitourinary Genitourinary: absent: Dysuria - Neurological Neurological: Headaches Past Patient History - Infectious Disease Hx of Infectious Diseases: None - Past Medical History & Family History Past Medical History?: Yes - Past Social History Smoking Status: Never Smoked - CARDIAC Hx Hypercholesterolemia: Yes Hx Hypertension: Yes - HEENT Hx HEENT Problems: No - ENDOCRINE/METABOLIC Hx Endocrine Disorders: Yes Hx Diabetes Mellitus Type 2: Yes - INTEGUMENTARY Hx Dermatological Problems: No - MUSCULOSKELETAL/RHEUMATOLOGICAL Hx Fractures: Yes (toes) - GENITOURINARY/GYNECOLOGICAL Hx Genitourinary Disorders: No - PSYCHIATRIC Hx Substance Use: No - SURGICAL HISTORY Hx Surgeries: Yes Hx Angiogram: Yes Hx Breast Biopsy: Yes Other/Comment: cyst from arm - ANESTHESIA Hx Anesthesia: Yes Hx Anesthesia Reactions: No Hx Malignant Hyperthermia: No Meds Allergies/Adverse Reactions: Allergies Allergy/AdvReac Type Severity Reaction Status Date / Time iodine Allergy Verified 01/02/19 13:39 Physical Exam - Constitutional Appears: In Acute Distress - Head Exam Head Exam: ATRAUMATIC, NORMAL INSPECTION - Eye Exam Eye Exam: EOMI, Normal appearance, PERRL Pupil Exam: NORMAL ACCOMODATION - ENT Exam ENT Exam: Mucous Membranes Moist - Respiratory Exam Respiratory Exam: Clear to Auscultation Bilateral, NORMAL BREATHING PATTERN - Cardiovascular Exam Cardiovascular Exam: REGULAR RHYTHM, +S1, +S2 - GI/Abdominal Exam GI & Abdominal Exam: Normal Bowel Sounds, Soft. absent: Distended, Firm, Tenderness - Extremities Exam Extremities exam: Positive for: normal inspection - Neurological Exam Neurological exam: Alert, Oriented x3 - Psychiatric Exam Psychiatric exam: Anxious - Skin Skin Exam: Normal Color Results - Vital Signs Recent Vital Signs: Last Vital Signs Temp 98.7 F 01/02/19 16:40 Pulse 95 H 01/02/19 16:40 Resp 18 01/02/19 16:40 BP 184/96 H 01/02/19 16:40 Pulse Ox 95 01/02/19 16:40 - Labs Result Diagrams: 01/02/19 14:13 01/02/19 14:13 Labs: Laboratory Results - last 24 hr 01/02/19 01/02/19 01/02/19 13:29 14:13 14:13 WBC 8.0 RBC 5.26 H Hgb 13.7 D Hct 43.6 MCV 82.9 MCH 26.1 L MCHC 31.4 L RDW 14.5 Plt Count 286 MPV 9.4 Neut % (Auto) 83.5 H Lymph % (Auto) 14.1 L Dawson % (Auto) 2.1 Eos % (Auto) 0.0 Baso % (Auto) 0.3 Neut # (Auto) 6.7 Lymph # (Auto) 1.1 Dawson # (Auto) 0.2 Eos # (Auto) 0.0 Baso # (Auto) 0.0 Sodium 138 Potassium 4.2 Chloride 98 Carbon Dioxide 26 Anion Gap 18 BUN 17 Creatinine 0.9 Est GFR ( Amer) > 60 Est GFR (Non-Af Amer) > 60 POC Glucose (mg/dL) 269 H Random Glucose 270 H D Calcium 10.0 Total Bilirubin 0.8 AST 26 ALT < 6 L D Alkaline Phosphatase 72 Troponin I < 0.0120 NT-Pro-B Natriuret Pep 565 Total Protein 9.2 H Albumin 5.0 D Globulin 4.2 H Albumin/Globulin Ratio 1.2 Lipase 34 Urine Color Urine Clarity Urine pH Ur Specific [place] Urine Protein Urine Glucose (UA) Urine Ketones Urine Blood Urine Nitrate Urine Bilirubin Urine Urobilinogen Ur Leukocyte Esterase Urine WBC (Auto) Urine RBC (Auto) Ur Squamous Epith Cells Urine Bacteria Influenza Typ A,B (EIA) 01/02/19 01/02/19 14:39 15:37 WBC RBC Hgb Hct MCV MCH MCHC RDW Plt Count MPV Neut % (Auto) Lymph % (Auto) Dawson % (Auto) Eos % (Auto) Baso % (Auto) Neut # (Auto) Lymph # (Auto) Dawson # (Auto) Eos # (Auto) Baso # (Auto) Sodium Potassium Chloride Carbon Dioxide Anion Gap BUN Creatinine Est GFR ( Amer) Est GFR (Non-Af Amer) POC Glucose (mg/dL) Random Glucose Calcium Total Bilirubin AST ALT Alkaline Phosphatase Troponin I NT-Pro-B Natriuret Pep Total Protein Albumin Globulin Albumin/Globulin Ratio Lipase Urine Color Straw Urine Clarity Clear Urine pH 7.0 Ur Specific [place] 1.011 Urine Protein 2+ H Urine Glucose (UA) 3+ H Urine Ketones 1+ H Urine Blood Negative Urine Nitrate Negative Urine Bilirubin Negative Urine Urobilinogen Normal Ur Leukocyte Esterase Neg Urine WBC (Auto) 1 Urine RBC (Auto) 4 H Ur Squamous Epith Cells 1 Urine Bacteria Rare Influenza Typ A,B (EIA) Negative for flu a/b Assessment & Plan - Assessment and Plan (Free Text) Assessment: Vomiting and Diarrhea secondary to Gastroenteritis - Influenza negative; UA negative - f/u blood and urine culture - f/u stool culture, ova & parasites, leukocytes, c. diff, stool occult - NPO --> will advance as tolerated - Medications * Zofran 4mg IV q6h Hypertension - Monitor with Vital signs Q8H - Cardio Consult: Dr. Jones --> help appreciated - Patient given in the ER Clonidine 0.2mg; Vasotec 2.5mg IV - Lopressor 5mg IV q8prn systolic B/P >160; Nitro paste 1/2 inch - Once patient can tolerate po medications will restart: * Clonidine 0.2mg PO TID * Hydralazine 50mg PO Q8H * Cozaar 100mg PO daily/HCTZ 25mg daily * ASA 81mg PO daily Diabetes mellitus - Once patient can tolerate po medications will restart: * Metformin 1,000mg PO BID * Glipizide 10mg PO bid * Simvastatin 20mg po HS - ISS - low - Accuchecks ACHS - hA1c (11/01): 8.1 History of peripheral vascular disease Stents placement X2, 2014 Once patient can tolerate po medications will restart: * ASA 81mg PO daily * Cilostazol 50mg PO BID Prophylactic measure GI: Protonix 40mg IV daily DVT: Heparin 5,000 units SC Q8H; SCDs Case discussed with Dr. Annamaria Casillas PGY-2 <Samson Yin - Last Filed: 01/07/19 07:04> Results - Vital Signs Recent Vital Signs: Last Vital Signs Temp 98.5 F 01/06/19 23:20 Pulse 70 01/06/19 23:20 Resp 20 01/06/19 23:20 BP 124/50 L 01/06/19 23:20 Pulse Ox 98 01/06/19 23:20 - Labs Result Diagrams: 01/06/19 07:56 01/06/19 07:56 Labs: Laboratory Results - last 24 hr 01/05/19 01/06/19 01/06/19 20:39 06:33 07:56 WBC 9.7 RBC 4.21 Hgb 11.2 D Hct 34.7 MCV 82.4 MCH 26.5 L MCHC 32.1 L RDW 14.2 Plt Count 212 MPV 9.4 Neut % (Auto) 55.0 Lymph % (Auto) 37.2 Dawson % (Auto) 7.1 Eos % (Auto) 0.3 Baso % (Auto) 0.4 Neut # (Auto) 5.3 Lymph # (Auto) 3.6 Dawson # (Auto) 0.7 Eos # (Auto) 0.0 Baso # (Auto) 0.0 PT INR APTT Sodium Potassium Chloride Carbon Dioxide Anion Gap BUN Creatinine Est GFR ( Amer) Est GFR (Non-Af Amer) POC Glucose (mg/dL) 178 H 168 H Random Glucose Calcium Phosphorus Magnesium Total Bilirubin AST ALT Alkaline Phosphatase Total Protein Albumin Globulin Albumin/Globulin Ratio Cortisol AM Sample 01/06/19 01/06/19 01/06/19 07:56 07:56 14:00 WBC RBC Hgb Hct MCV MCH MCHC RDW Plt Count MPV Neut % (Auto) Lymph % (Auto) Dawson % (Auto) Eos % (Auto) Baso % (Auto) Neut # (Auto) Lymph # (Auto) Dawson # (Auto) Eos # (Auto) Baso # (Auto) PT 10.5 INR 1.0 APTT 32 Sodium 136 Potassium 3.9 Chloride 101 Carbon Dioxide 28 Anion Gap 12 BUN 32 H Creatinine 1.4 H Est GFR ( Amer) 44 Est GFR (Non-Af Amer) 36 POC Glucose (mg/dL) Random Glucose 148 H D Calcium 8.5 L Phosphorus 2.8 Magnesium 1.7 Total Bilirubin 0.8 AST 15 ALT 17 Alkaline Phosphatase 44 Total Protein 6.1 L Albumin 3.5 D Globulin 2.7 Albumin/Globulin Ratio 1.3 Cortisol AM Sample 1.8 L 01/06/19 01/06/19 01/07/19 17:20 21:21 06:16 WBC RBC Hgb Hct MCV MCH MCHC RDW Plt Count MPV Neut % (Auto) Lymph % (Auto) Dawson % (Auto) Eos % (Auto) Baso % (Auto) Neut # (Auto) Lymph # (Auto) Dawson # (Auto) Eos # (Auto) Baso # (Auto) PT INR APTT Sodium Potassium Chloride Carbon Dioxide Anion Gap BUN Creatinine Est GFR ( Amer) Est GFR (Non-Af Amer) POC Glucose (mg/dL) 291 H 250 H 162 H Random Glucose Calcium Phosphorus Magnesium Total Bilirubin AST ALT Alkaline Phosphatase Total Protein Albumin Globulin Albumin/Globulin Ratio Cortisol AM Sample Attending/Attestation - Attestation I have personally seen and examined this patient.: Yes I have fully participated in the care of the patient.: Yes I have reviewed all pertinent clinical information: Yes
[2019-01-02] MEDS ORDERED: Enalaprilat 2.5 MG/2 ML IV ONE (17:45)
[2019-01-02] MEDS ORDERED: Labetalol 5 mg/ml Inj 20ML IV ONE (17:45)
[2019-01-02] MEDS ORDERED: Glucagon Recombinant 1 mg Inj IM PRN (17:50)
[2019-01-02] MEDS ORDERED: Dextrose 50% SYRINGE Inj (50 ml) IV PRN (17:50)
[2019-01-02] MEDS ORDERED: Sodium Chloride 0.45% 1,000 ML IV SCH (18:00)
[2019-01-02] MEDS ORDERED: Nitroglycerin 2% Ointment Foilpak UD TOP ONE (19:12)
[2019-01-02] MEDS: Metoprolol 1 mg/ml Inj IVP PRN (19:23)
--- NOTE | 2019-01-02 21:20 | C.PDOC ---
History Of Present Illness 78 year old female presents to the ED for evaluation of generalized weakness and vomiting for the past two days. Patient reports decreased PO intake. Patient also states that she has been trying to take her outpatient medications, but she keeps vomiting. She denies chest pain, shortness of breath, fever, chills, cough, or recent travel. Time Seen by Provider: 01/02/19 13:41 Chief Complaint (Nursing): Weakness/Neurological Deficit History Per: Patient History/Exam Limitations: no limitations Onset/Duration Of Symptoms: Days (2) Current Symptoms Are (Timing): Still Present Additional History Per: Patient Past Medical History Reviewed: Historical Data, Nursing Documentation, Vital Signs Vital Signs: Last Vital Signs Temp 98.5 F 01/02/19 20:10 Pulse 77 01/02/19 20:10 Resp 20 01/02/19 20:10 BP 192/104 H 01/02/19 20:10 Pulse Ox 98 01/02/19 20:10 - Medical History PMH: Fractures (toes), HTN, Hypercholesterolemia, Peripheral Edema Surgical History: Endoscopy - [facility] Procedures ANGIOPLASTY OF OTHER NON-CORONARY VESSEL(S) (07/25/15) CONTRAST ARTERIOGRAM-LEG (04/04/15) INSEJ [id number] PERIPHERAL NON-CORONARY VES STENT(S) (07/25/15) INSERTION OF TWO VASCULAR STENTS (07/25/15) PROCEDURE ON TWO VESSELS (07/25/15) Family History: States: Unknown Family Hx - Social History Hx Alcohol Use: No Hx Substance Use: No - Immunization History Hx Tetanus Toxoid Vaccination: No Hx Influenza Vaccination: No Hx Pneumococcal Vaccination: No Review Of Systems Constitutional: Positive for: Weakness, Other (decreased PO intake ). Negative for: Fever, Chills Respiratory: Negative for: Cough Gastrointestinal: Positive for: Vomiting Physical Exam - Physical Exam Appears: Non-toxic, No Acute Distress Skin: Normal Color, Warm, Dry Head: Atraumatic, Normacephalic Eye(s): bilateral: Normal Inspection Oral Mucosa: Dry Lips: Other (dry ) Neck: Supple Chest: Symmetrical, No Deformity, No Tenderness Cardiovascular: Rhythm Regular, No Murmur Respiratory: Normal Breath Sounds, No Rales, No Rhonchi, No Wheezing Gastrointestinal/Abdominal: Soft, No Tenderness, No Guarding, No Rebound Extremity: Normal ROM, Capillary Refill (less than 2 seconds ) Neurological/Psych: Oriented x3, Normal Speech, Normal Cognition ED Course And Treatment - Laboratory Results Result Diagrams: 01/02/19 14:13 01/02/19 14:13 Lab Results: Troponin I < 0.0120 ng/mL (0.00-0.120) 01/02/19 14:13 NT-Pro-B Natriuret Pep 565 pg/mL (0-900) 01/02/19 14:13 Total Bilirubin 0.8 mg/dL (0.2-1.3) 01/02/19 14:13 AST 26 U/L (14-36) 01/02/19 14:13 ALT < 6 U/L (9-52) L D 01/02/19 14:13 Alkaline Phosphatase 72 U/L (38-126) 01/02/19 14:13 Total Protein 9.2 g/dL (6.3-8.3) H 01/02/19 14:13 Albumin 5.0 g/dL (3.5-5.0) D 01/02/19 14:13 Globulin 4.2 gm/dL (2.2-3.9) H 01/02/19 14:13 Albumin/Globulin Ratio 1.2 (1.0-2.1) 01/02/19 14:13 Lipase 34 U/L (23-300) 01/02/19 14:13 Urine Color Straw (YELLOW) 01/02/19 15:37 Urine Clarity Clear (Clear) 01/02/19 15:37 Urine pH 7.0 (5.0-8.0) 01/02/19 15:37 Ur Specific [place] 1.011 (1.003-1.030) 01/02/19 15:37 Urine Protein 2+ mg/dL (NEGATIVE) H 01/02/19 15:37 Urine Glucose (UA) 3+ mg/dL (Normal) H 01/02/19 15:37 Urine Ketones 1+ mg/dL (NEGATIVE) H 01/02/19 15:37 Urine Blood Negative (NEGATIVE) 01/02/19 15:37 Urine Nitrate Negative (NEGATIVE) 01/02/19 15:37 Urine Bilirubin Negative (NEGATIVE) 01/02/19 15:37 Urine Urobilinogen Normal mg/dL (0.2-1.0) 01/02/19 15:37 Ur Leukocyte Esterase Neg [place]/uL (Negative) 01/02/19 15:37 Urine WBC (Auto) 1 /hpf (0-5) 01/02/19 15:37 Urine RBC (Auto) 4 /hpf (0-3) H 01/02/19 15:37 Ur Squamous Epith Cells 1 /hpf (0-5) 01/02/19 15:37 Urine Bacteria Rare (<OCC) 01/02/19 15:37 ECG: Interpreted By Me, Viewed By Me ECG Rhythm: Sinus Rhythm, R BBB Interpretation Of ECG: Sinus Rhytth at rate 77bpm. Right bundle branch block. Left axis deviation. Unchanged from 10/18/2018. Rate From EC O2 Sat by Pulse Oximetry: 98 (on RA ) Pulse Ox Interpretation: Normal - CT Scan/US CT A/P Other Rad Studies (CT/US): Read By Radiologist, Radiology Report Reviewed CT/US Interpretation: PROCEDURE: CT Abdomen and Pelvis without Oral or IV contrast. HISTORY: nausea/vomiting. COMPARISON: CT abdomen and pelvis with IV contrast performed 12/30/16. TECHNIQUE: Contiguous axial images of the abdomen and pelvis. No oral or IV contrast administered. Coronal and Sagittal reformats generated and reviewed. Radiation dose: Total exam DLP = 1144.86 mGy-cm. This CT exam was performed using one or more of the following dose reduction techniques: Automated exposure control, adjustment of the mA and/or kV according to patient size, and/or use of iterative reconstruction technique. FINDINGS: There is limited evaluation of the solid organs without the administration of IV contrast. LOWER THORAX: No visible consolidation, pleural effusion, or pneumothorax. Moderate hiatal hernia. LIVER: Unremarkable unenhanced appearance. GALLBLADDER AND BILE DUCTS: Unremarkable unenhanced appearance. PANCREAS: Unremarkable unenhanced appearance. SPLEEN: 9 mm probable splenule. Otherwise unremarkable unenhanced appearance. ADRENALS: Nodular hypertrophy of the left adrenal gland. Mild hypertrophy of the right adrenal gland. KIDNEYS AND URETERS: No hydronephrosis or obstructing renal calculus. BLADDER: The urinary bladder appears unremarkable. REPRODUCTIVE: Uterus is present. APPENDIX: The appendix appears within normal limits of caliber. No secondary signs of acute appendicitis. BOWEL: The stomach is nondistended. Lack of oral contrast limits evaluation for bowel pathology. The bowel loops appear within normal limits of caliber without evidence of intestinal obstruction. PERITONEUM: No significant free fluid. No definite free air. LYMPH NODES: No bulky lymphadenopathy identified. VASCULATURE: Atherosclerotic calcifications of the aorta and branches. No aortic aneurysm. BONES: Grade 1 anterolisthesis of L4 on L5. Mild degenerative changes. OTHER FINDINGS: Pelvic calcifications, likely phleboliths. IMPRESSION: Nodular hypertrophy of the left adrenal gland. Mild hypertrophy of the right adrenal gl and. Moderate hiatal hernia. Additional incidental findings as above. Medical Decision Making Medical Decision Making: Progress: Bloodwork, urinalysis, Flu Swab, EKG, and CT A/P ordered and reviewed. Pepcid IVP, Reglan IVP, Zofran IVP, and IV Fluids given. Case discussed with Dr. Yin, who is currently covering for Dr. Patel. Patient will be admitted for dehydration and intractable vomiting. PO medication started after significant anti-nausea medication given. Disposition - Disposition Disposition: HOSPITALIZED Disposition Time: 16:30 Condition: STABLE - Clinical Impression Clinical Impression: Intractable vomiting, Weakness, Hypertension - Scribe Statement The provider has reviewed the documentation as recorded by the Scribe (Nasreen Junior) Provider Attestation: All medical record entries made by the Scribe were at my direction and personally dictated by me. I have reviewed the chart and agree that the record accurately reflects my personal performance of the history, physical exam, medical decision making, and the department course for this patient. I have also personally directed, reviewed, and agree with the discharge instructions and disposition.
[2019-01-02] MEDS: (Novolin R) Insulin Human Regular 100 units/ml vial SC SCH (21:59)
[2019-01-03] MEDS: Metoprolol 1 mg/ml Inj IVP PRN ×2 (04:30→14:23)
[2019-01-03] MEDS ORDERED: Enalaprilat 2.5 MG/2 ML IV ONE (05:44)
--- NOTE | 2019-01-03 07:08 | CP.PCM.PN ---
Subjective - Date & Time of Evaluation Date of Evaluation: 01/03/19 Time of Evaluation: 08:00 - Subjective Subjective: Medicine Progress Note for Dr. Toussaint: Patient was seen and examined at bedside in no acute distress. Patient states she has not vomited since yesterday evening but felt only slightly nauseated this morning. Patient states she has not had any more bowel movements since yesterday. Patient denies chest pain, headache, shortness of breath, palpitations, fever or chills. Objective - Vital Signs/Intake and Output Vital Signs (last 24 hours): Temp Pulse Resp BP Pulse Ox 99.7 F H 99 H 20 207/106 H 95 01/03/19 04:31 01/03/19 07:00 01/03/19 04:31 01/03/19 07:00 01/03/19 04:31 Intake and Output: 01/03/19 01/03/19 06:59 18:59 Intake Total 0 Balance 0 - Medications Medications: Current Medications Dextrose (Dextrose 50% Inj) 0 ml IV STAT PRN; Protocol PRN Reason: Hypoglycemia Protocol Dextrose (Glutose 15) 0 gm PO ONCE PRN; Protocol PRN Reason: Hypoglycemia Protocol Glucagon (Glucagen Diagnostic Kit) 0 mg IM STAT PRN; Protocol PRN Reason: Hypoglycemia Protocol Heparin Sodium (Porcine) (Heparin) 5,000 units SC Q8 COUNTS INCLUDE 234 BEDS AT THE [facility] Last Admin: 01/03/19 05:02 Dose: 5,000 units Dextrose (Dextrose 5% In Water 1000 Ml) 1,000 mls @ 0 mls/hr IV .Q0M PRN; Protocol PRN Reason: Hypoglycemia Protocol Influenza Virus Vaccine (Flucelvax Quad [id number] Syr) 60 mcg IM .ONCE ONE Stop: 01/04/19 10:01 Insulin Human Regular (Novolin R) 0 unit SC [facility]AN; Protocol Last Admin: 01/02/19 21:59 Dose: Not Given Metoprolol Tartrate (Lopressor) 5 mg IVP Q8 PRN PRN Reason: Systolic Blood Pressure Last Admin: 01/03/19 04:30 Dose: 5 mg Ondansetron HCl (Zofran Inj) 4 mg IVP Q6H COUNTS INCLUDE 234 BEDS AT THE [facility] Last Admin: 01/03/19 05:02 Dose: 4 mg Pantoprazole Sodium (Protonix Inj) 40 mg IVP DAILY COUNTS INCLUDE 234 BEDS AT THE [facility] Last Admin: 01/02/19 18:01 Dose: 40 mg Pneumococcal Polyvalent Vaccine (Pneumovax 23 Vaccine) 0.5 ml IM .ONCE ONE Stop: 01/04/19 10:01 - Labs Labs: 01/02/19 14:13 01/02/19 14:13 - Constitutional Appears: No Acute Distress - Head Exam Head Exam: ATRAUMATIC, NORMAL INSPECTION - Eye Exam Eye Exam: EOMI, Normal appearance - ENT Exam ENT Exam: Mucous Membranes Moist - Respiratory Exam Respiratory Exam: Clear to Ausculation Bilateral, NORMAL BREATHING PATTERN - Cardiovascular Exam Cardiovascular Exam: REGULAR RHYTHM, +S1, +S2 - GI/Abdominal Exam GI & Abdominal Exam: Soft, Normal Bowel Sounds. absent: Tenderness - Extremities Exam Extremities Exam: Normal Inspection - Neurological Exam Neurological Exam: Alert, Awake, Oriented x3 - Psychiatric Exam Psychiatric exam: Normal Affect, Normal Mood - Skin Skin Exam: Normal Color Assessment and Plan - Assessment and Plan (Free Text) Assessment: Vomiting and Diarrhea secondary to Gastroenteritis - Influenza negative; UA negative - f/u blood and urine culture - f/u stool culture, ova & parasites, leukocytes, c. diff, stool occult - Liquid Diet --> will advance as tolerated - Medications * Zofran 4mg IV q6h prn for nausea/vomiting Hypertension - Monitor with Vital signs Q8H - Cardio Consult: Dr. Jones --> help appreciated - Patient given in the ER Clonidine 0.2mg; Vasotec 2.5mg IV - Lopressor 5mg IV q8prn systolic B/P >160 - Continue home medications: * Clonidine 0.2mg PO TID * Hydralazine 50mg PO Q8H * Cozaar 100mg PO daily/HCTZ 25mg daily * ASA 81mg PO daily Diabetes mellitus - Continue home medications: * Metformin 1,000mg PO BID * Glipizide 10mg PO bid * Simvastatin 20mg po HS - ISS - low - Accuchecks ACHS - hA1c (11/01): 8.1 History of peripheral vascular disease Stents placement 2014 Continue home medications: * ASA 81mg PO daily * Cilostazol 50mg PO BID Prophylactic measure GI: Protonix 40mg IV daily DVT: Heparin 5,000 units SC Q8H; SCDs Case discussed with Dr. Norbert Casillas PGY-2
[2019-01-03] MEDS: (Novolin R) Insulin Human Regular 100 units/ml vial SC SCH ×5 (08:30→22:13)
[2019-01-03 08:41] LABS: BASO # 0.1 K/uL (0.0-0.2); BASO % 0.8 % (0.0-2.0); EOS # 0.1 K/uL (0.0-0.7); EOS % 0.7 % (0.0-4.0); HEMOGLOBIN 14.1 g/dL (11.0-16.0); LYMPH # 1.5 K/uL (1.0-4.3); LYMPH % 12.9 % (20.0-40.0); MEAN CELL VOLUME 82.1 fL (81.0-99.0); MEAN CORPUSCULAR HEMOGLOBIN 26.2 pg (27.0-31.0); MEAN CORPUSCULAR HGB CONC 31.9 g/dL (33.0-37.0); MEAN PLATELET VOLUME 8.7 fL (7.2-11.7); MONO # 0.5 K/uL (0.0-0.8); MONO % 3.8 % (0.0-10.0); NEUT # 9.8 K/uL (1.8-7.0); NEUT % 81.8 % (50.0-75.0); RBC 5.38 Mil/uL (3.80-5.20); RED CELL DISTRIBUTION WIDTH 14.6 % (11.5-14.5)
[2019-01-03 08:52] LABS: ALB/GLOB RATIO 1.2 (1.0-2.1); ALBUMIN 4.9 g/dL (3.5-5.0); ALT/SGPT 8 U/L (9-52); AST/SGOT 27 U/L (14-36); BLOOD UREA NITROGEN 18 mg/dL (7-17); CALCIUM 9.6 mg/dl (8.6-10.4); GFR NON-AFRICAN AMERICAN 53
[2019-01-03] MEDS: Cilostazol 50 mg Tab UD PO SCH ×2 (11:00→18:10)
--- NOTE | 2019-01-03 11:47 | RAD ---
Date of service: 01/03/2019 HISTORY: r/o fluid overload; HTN COMPARISON: 01/02/2019. FINDINGS: LUNGS: The lungs are well inflated and clear. No pulmonary venous congestion or focal consolidation. PLEURA: No pleural effusions or pneumothorax. CARDIOVASCULAR: There is mild cardiomegaly. There are aortic atherosclerotic calcifications present. OSSEOUS STRUCTURES: Within normal limits for the patient's age. VISUALIZED UPPER ABDOMEN: Normal. OTHER FINDINGS: None. IMPRESSION: No acute findings.
--- NOTE | 2019-01-03 19:44 | CP.PCM.CON ---
History of Present Illness - History of Present Illness History of Present Illness: I was asked to see patient by Dr Toussaint. Patient seen 01/03/191940 Patient is a 78 year old female with HTN hyperchoelsterolmeia PAD s/p stent L poplitesl, SFA who presents with vomiting and diarrhea. The patient states she has felt ill for a few days. She was found to be hypertensive. She denies chest pain or dyspnea. Review of Systems - Constitutional Constitutional: absent: As Per HPI, Anorexia, Chills, Daytime Sleepiness, Excessive Sweating, Fatigue, Fever, Frequent Falls, Headache, Increased Appetite, Lethargy, Malaise, Night Sweats, Snoring, Sleep Apnea, Weight Gain, Weight Loss, Weakness, Other - EENT Eyes: absent: As Per HPI, Blind Spots, Blurred Vision, Change in Vision, Decreased Night Vision, Diplopia, Discharge, Dry Eye, Exophthalmos, Floaters, Irritation, Itchy Eyes, Loss of Peripheral Vision, Pain, Photophobia, Requires Corrective Lenses, Sees Flashes, Spots in Vision, Tunnel Vision, Other Visual Disturbances, Loss of Vision, Other Nose/Mouth/Throat: absent: As Per HPI, Epistaxis, Nasal Congestion, Nasal Discharge, Nasal Obstruction, Nasal Trauma, Nose Pain, Post Nasal Drip, Sinus Pain, Sinus Pressure, Bleeding Gums, Change in Voice, Dental Pain, Dry Mouth, Dysphagia, Halitosis, Hoarsness, Lip Swelling, Mouth Lesions, Mouth Pain, Odynophagia, Sore Throat, Throat Swelling, Tongue Swelling, Facial Pain, Neck Pain, Neck Mass, Other - Cardiovascular Cardiovascular: absent: As Per HPI, Acrocyanosis, Chest Pain, Chest Pain at R est, Chest Pain with Activity, Claudication, Diaphoresis, Dyspnea, Dyspnea on Exertion, Edema, Irregular Heart Rhythm, Pain Radiating to Arm/Neck/Jaw, Leg Edema, Leg Ulcers, Lightheadedness, Orthopnea, Palpitations, Paroxysmal Nocturnal Dyspnea, Pedal Edema, Radiating Pain, Rapid Heart Rate, Slow Heart Rate, Syncope, Other - Respiratory Respiratory: absent: As Per HPI, Cough, Dyspnea, Hemoptysis, Dyspnea on Exertion, Wheezing, Snoring, Stridor, Pain on Inspiration, Chest Congestion, Excessive Mucous Production, Change in Mucous Color, Pain with Coughing, Other - Gastrointestinal Gastrointestinal: Vomiting - Genitourinary Genitourinary: absent: As Per HPI, Change in Urinary Stream, Difficulty Urinating, Dysuria, Flank Pain, Hematuria, Pyuria, Nocturia, Urinary Incontinence, Urinary Frequency, Urinary Hesitance, Urinary Urgency, Voiding Freq/Small Amts, Freq UTI, Hx Renal/Bladder Calculi, Hx /Renal Surgery, Bladder Distension, Other - Musculoskeletal Musculoskeletal: absent: As Per HPI, Abnormal Gait, Arthralgias, Atrophy, Back Pain, Deformity, Joint Swelling, Limited Range of Motion, Loss of Height, Muscle Cramps, Muscle Weakness, Myalgias, Neck Pain, Numbness, Radiating Pain into Limb, Stiffness, Tingling, Other - Integumentary Integumentary: absent: As Per HPI, Acne, Alopecia, Bleeding Lesions, Change in Hair, Change in Nails, Change in Pigmentation, Changing Lesions, Dry Skin, E rythema, Furuncle, Hirsutism, Lesions, New Lesions, Non-Healing Lesions, Photosensitivity, Pruritus, Rash, Skin Pain, Skin Ulcer, Sores, Striae, Swelling, Unusual Bruising, Wounds, Jaundice, Other - Neurological Neurological: absent: As Per HPI, Abnormal Gait, Abnormal Hearing, Abnormal Movements, Abnormal Speech, Behavioral Changes, Burning Sensations, Confusion, Convulsions, Disequilibrium, Dizziness, Numbness, Focal Weakness, Frequent Falls, Headaches, Lack of Coordination, Loss of Vision, Memory Loss, Paresthesias, Radicular Pain, Restless Legs, Sensory Deficit, Syncope, Tingling, Tremor, Vertigo, Weakness, Other Visual Disturbances, Other - Psychiatric Psychiatric: absent: As Per HPI, Abnormal Sleep Pattern, Anhedonia, Anxiety, Auditory Hallucinations, Behavioral Changes, Change in Appetite, Change in Libi do, Confusion, Depression, Difficulty Concentrating, Hallucinations, Homicidal Ideation, Hopelessness, Irritability, Memory Loss, Mood Swings, Panic Attacks, Paranoia, Suicidal Ideation, Visual Hallucinations, Tactile Hallucinations, Other - Endocrine Endocrine: absent: As Per HPI, Change in Body Appearance, Change in Libido, Cold Intolorance, Deepening of Voice, Excessive Sweating, Fatigue, Flushing, Heat Intolorance, Increase in Ring/Shoe/Hat Size, Palpitations, Polydipsia, Polyphagia, Polyuria, Other - Hematologic/Lymphatic Hematologic: absent: As Per HPI, Easy Bleeding, Easy Bruising, Lymphadenopathy, Other Past Patient History - Infectious Disease Hx of Infectious Diseases: None - Past Medical History & Family History Past Medical History?: Yes - Past Social History Smoking Status: Never Smoked - CARDIAC Hx Hypercholesterolemia: Yes Hx Hypertension: Yes Hx Peripheral Edema: Yes - HEENT Hx HEENT Problems: No - ENDOCRINE/METABOLIC Hx Endocrine Disorders: Yes Hx Diabetes Mellitus Type 2: Yes - INTEGUMENTARY Hx Dermatological Problems: No - MUSCULOSKELETAL/RHEUMATOLOGICAL Hx Fractures: Yes (toes) - GENITOURINARY/GYNECOLOGICAL Hx Genitourinary Disorders: No - PSYCHIATRIC Hx Substance Use: No - SURGICAL HISTORY Hx Surgeries: Yes Hx Angiogram: Yes Other/Comment: cyst from arm-removed - ANESTHESIA Hx Anesthesia: Yes Hx Anesthesia Reactions: No Hx Malignant Hyperthermia: No Meds Allergies/Adverse Reactions: Allergies Allergy/AdvReac Type Severity Reaction Status Date / Time iodine Allergy Verified 01/02/19 13:39 - Medications Medications: Current Medications Aspirin (Ecotrin) 81 mg PO DAILY [facility] Last Admin: 01/03/19 09:35 Dose: 81 mg Cilostazol (Pletal) 50 mg PO BID [facility] Last Admin: 01/03/19 18:10 Dose: 50 mg Clonidine HCl (Catapres) 0.2 mg PO TID [facility] Last Admin: 01/03/19 18:07 Dose: 0.2 mg Dextrose (Dextrose 50% Inj) 0 ml IV STAT PRN; Protocol PRN Reason: Hypoglycemia Protocol Dextrose (Glutose 15) 0 gm PO ONCE PRN; Protocol PRN Reason: Hypoglycemia Protocol Glipizide (Glucotrol) 10 mg PO BID [facility] Last Admin: 01/03/19 18:07 Dose: 10 mg Glucagon (Glucagen Diagnostic Kit) 0 mg IM STAT PRN; Protocol PRN Reason: Hypoglycemia Protocol Heparin Sodium (Porcine) (Heparin) 5,000 units SC Q8 [facility] Last Admin: 01/03/19 14:13 Dose: 5,000 units Hydralazine HCl (Apresoline) 100 mg PO Q8 [facility] Last Admin: 01/03/19 13:38 Dose: 100 mg Hydrochlorothiazide (Hydrodiuril) 25 mg PO DAILY [facility] Last Admin: 01/03/19 09:35 Dose: 25 mg Dextrose (Dextrose 5% In Water 1000 Ml) 1,000 mls @ 0 mls/hr IV .Q0M PRN; Protocol PRN Reason: Hypoglycemia Protocol Influenza Virus Vaccine (Flucelvax Quad [id number] Syr) 60 mcg IM .ONCE ONE Stop: 01/04/19 10:01 Insulin Human Regular (Novolin R) 0 unit SC [facility]; Protocol Last Admin: 01/03/19 18:07 Dose: 3 units Losartan Potassium (Cozaar) 100 mg PO DAILY [facility] Last Admin: 01/03/19 09:35 Dose: 100 mg [facility] Admin: 01/03/19 18:07 Dose: 1,000 mg Metoprolol Tartrate (Lopressor) 5 mg IVP Q8 PRN PRN Reason: Systolic Blood Pressure Last Admin: 01/03/19 14:23 Dose: 5 mg Ondansetron HCl (Zofran Inj) 4 mg IVP Q6H PRN PRN Reason: Nausea/Vomiting Pantoprazole Sodium (Protonix Inj) 40 mg IVP DAILY [facility] Last Admin: 01/03/19 09:34 Dose: 40 mg Pneumococcal Polyvalent Vaccine (Pneumovax 23 Vaccine) 0.5 ml IM .ONCE ONE Stop: 01/04/19 10:01 Rosuvastatin Calcium (Crestor) 5 mg PO [facility] Physical Exam - Constitutional Appears: Non-toxic - Head Exam Head Exam: NORMAL INSPECTION - Eye Exam Eye Exam: Normal appearance - ENT Exam ENT Exam: Mucous Membranes Moist - Neck Exam Neck exam: Positive for: Full Rom - Respiratory Exam Respiratory Exam: NORMAL BREATHING PATTERN - Cardiovascular Exam Cardiovascular Exam: REGULAR RHYTHM - GI/Abdominal Exam GI & Abdominal Exam: Normal Bowel Sounds - Rectal Exam Rectal Exam: absent: Deferred - Extremities Exam Extremities exam: Negative for: pedal edema - Back Exam Back exam: NORMAL INSPECTION - Neurological Exam Neurological exam: Alert, Oriented x3 - Psychiatric Exam Psychiatric exam: Normal Affect - Skin Skin Exam: Normal Color Results - Vital Signs Recent Vital Signs: Last Vital Signs Temp 98.9 F 01/03/19 15:05 Pulse 93 H 01/03/19 15:05 Resp 20 01/03/19 15:05 BP 123/69 01/03/19 15:05 Pulse Ox 96 01/03/19 15:05 - Labs Result Diagrams: 01/03/19 08:34 01/03/19 08:34 Labs: Laboratory Results - last 24 hr 01/02/19 01/03/19 01/03/19 21:23 06:32 08:34 WBC 12.0 H RBC 5.38 H Hgb 14.1 Hct 44.1 MCV 82.1 MCH 26.2 L MCHC 31.9 L RDW 14.6 H Plt Count 288 MPV 8.7 Neut % (Auto) 81.8 H Lymph % (Auto) 12.9 L [place] % (Auto) 3.8 Eos % (Auto) 0.7 Baso % (Auto) 0.8 Neut # (Auto) 9.8 H Lymph # (Auto) 1.5 [place] # (Auto) 0.5 Eos # (Auto) 0.1 Baso # (Auto) 0.1 Sodium Potassium Chloride Carbon Dioxide Anion Gap BUN Creatinine Est GFR ( Amer) Est GFR (Non-Af Amer) POC Glucose (mg/dL) 266 H 316 H Random Glucose Calcium Phosphorus Magnesium Total Bilirubin AST ALT Alkaline Phosphatase Total Protein Albumin Globulin Albumin/Globulin Ratio 01/03/19 01/03/19 08:34 11:43 WBC RBC Hgb Hct MCV MCH MCHC RDW Plt Count MPV Neut % (Auto) Lymph % (Auto) [place] % (Auto) Eos % (Auto) Baso % (Auto) Neut # (Auto) Lymph # (Auto) [place] # (Auto) Eos # (Auto) Baso # (Auto) Sodium 134 Potassium 4.0 Chloride 93 L Carbon Dioxide 28 Anion Gap 17 BUN 18 H Creatinine 1.0 Est GFR ( Amer) > 60 Est GFR (Non-Af Amer) 53 POC Glucose (mg/dL) 348 H Random Glucose 345 H D Calcium 9.6 Phosphorus 3.6 Magnesium 1.4 L Total Bilirubin 1.1 AST 27 ALT 8 L D Alkaline Phosphatase 76 Total Protein 9.0 H Albumin 4.9 Globulin 4.1 H Albumin/Globulin Ratio 1.2 - EKG Data EKG Interpreted by: Myself EKG shows normal: Sinus rhythm Assessment & Plan (1) Hypertension Assessment and Plan: recommend continued blood pressure control. Increase clonidine to 0.2 mg BID. continue medical therapy Status: Acute (2) Diabetes mellitus Assessment and Plan: blood glucose control Status: Acute (3) Hypercholesterolemia Assessment and Plan: statin therapy Status: Acute (4) Peripheral vascular disease Assessment and Plan: s/p stent L SFA/popliteal artery medical tehrapy with plavix Status: Acute
--- NOTE | 2019-01-04 07:39 | CP.PCM.PN ---
Subjective - Date & Time of Evaluation Date of Evaluation: 01/04/19 Time of Evaluation: 07:28 - Subjective Subjective: Progress note for Dr. Toussaint Patient was seen and examined at bedside in no acute distress. Patient reports feeling better today, just slightly weak. Patient denies nausea, vomiting, fevers, headaches, vision changes, chest pain, palpitations, abdominal pain, leg pain, dysuria. Objective - Vital Signs/Intake and Output Vital Signs (last 24 hours): Temp Pulse Resp BP Pulse Ox 98.8 F 82 20 111/59 L 96 01/04/19 04:32 01/04/19 04:32 01/04/19 04:32 01/04/19 04:32 01/04/19 04:32 - Medications Medications: Current Medications Aspirin (Ecotrin) 81 mg PO DAILY [facility] Last Admin: 01/03/19 09:35 Dose: 81 mg Cilostazol (Pletal) 50 mg PO BID [facility] Last Admin: 01/03/19 18:10 Dose: 50 mg Clonidine HCl (Catapres) 0.2 mg PO TID [facility] Last Admin: 01/03/19 18:07 Dose: 0.2 mg Dextrose (Dextrose 50% Inj) 0 ml IV STAT PRN; Protocol PRN Reason: Hypoglycemia Protocol Dextrose (Glutose 15) 0 gm PO ONCE PRN; Protocol PRN Reason: Hypoglycemia Protocol Glipizide (Glucotrol) 10 mg PO BID [facility] Last Admin: 01/03/19 18:07 Dose: 10 mg Glucagon (Glucagen Diagnostic Kit) 0 mg IM STAT PRN; Protocol PRN Reason: Hypoglycemia Protocol Heparin Sodium (Porcine) (Heparin) 5,000 units SC Q8 [facility] Last Admin: 01/04/19 05:33 Dose: 5,000 units Hydralazine HCl (Apresoline) 100 mg PO Q8 [facility] Last Admin: 01/04/19 05:08 Dose: Not Given Hydrochlorothiazide (Hydrodiuril) 25 mg PO DAILY [facility] Last Admin: 01/03/19 09:35 Dose: 25 mg Dextrose (Dextrose 5% In Water 1000 Ml) 1,000 mls @ 0 mls/hr IV .Q0M PRN; Protocol PRN Reason: Hypoglycemia Protocol Influenza Virus Vaccine (Flucelvax Quad [id number] Syr) 60 mcg IM .ONCE ONE Stop: 01/04/19 10:01 Insulin Human Regular (Novolin R) 0 unit SC [facility]; Protocol Last Admin: 01/03/19 22:13 Dose: Not Given Losartan Potassium (Cozaar) 100 mg PO DAILY [facility] Last Admin: 01/03/19 09:35 Dose: 100 mg Metformin HCl (Glucophage) 1,000 mg PO BIDCC [facility] Last Admin: 01/03/19 18:07 Dose: 1,000 mg Metoprolol Tartrate (Lopressor) 5 mg IVP Q8 PRN PRN Reason: Systolic Blood Pressure Last Admin: 01/03/19 14:23 Dose: 5 mg Ondansetron HCl (Zofran Inj) 4 mg IVP Q6H PRN PRN Reason: Nausea/Vomiting Pantoprazole Sodium (Protonix Inj) 40 mg IVP DAILY [facility] Last Admin: 01/03/19 09:34 Dose: 40 mg Pneumococcal Polyvalent Vaccine (Pneumovax 23 Vaccine) 0.5 ml IM .ONCE ONE Stop: 01/04/19 10:01 Rosuvastatin Calcium (Crestor) 5 mg PO [facility] Last Admin: 01/03/19 22:15 Dose: 5 mg - Labs Labs: 01/03/19 08:34 01/03/19 08:34 - Constitutional Appears: No Acute Distress - Head Exam Head Exam: NORMAL INSPECTION - Eye Exam Eye Exam: EOMI, Normal appearance - Respiratory Exam Respiratory Exam: Clear to Ausculation Bilateral, NORMAL BREATHING PATTERN. absent: Rhonchi, Wheezes, Respiratory Distress - Cardiovascular Exam Cardiovascular Exam: REGULAR RHYTHM, +S1, +S2 - GI/Abdominal Exam GI & Abdominal Exam: Soft, Normal Bowel Sounds. absent: Distended, Firm, Guarding, Tenderness - Extremities Exam Extremities Exam: Normal Inspection - Neurological Exam Neurological Exam: Alert, Awake, Oriented x3 - Psychiatric Exam Psychiatric exam: Normal Affect, Normal Mood - Skin Skin Exam: Dry, Intact, Normal Color, Warm Assessment and Plan - Assessment and Plan (Free Text) Plan: Vomiting and Diarrhea secondary to Gastroenteritis - Influenza negative; UA negative - f/u blood and urine culture - f/u stool culture, ova & parasites, leukocytes, c. diff, stool occult - Advanced diet to heart health diet (has tolerated w/o n/v) - Medications * Zofran 4mg IV q6h prn for nausea/vomiting Hypertension - Monitor with Vital signs Q8H - Cardio Consult: Dr. Jones --> help appreciated - Renal US: f/u - Patient given in the ER Clonidine 0.2mg; Vasotec 2.5mg IV - Lopressor 5mg IV q8prn systolic B/P >160 - Continue home medications: * Clonidine 0.2mg PO TID * Hydralazine 100mg PO Q8H * topped Cozaar 100mg PO daily/HCTZ 25mg daily due to JOHN--> will consider resuming per Dr. Toussaint after discharge. If needed, may start Norvasc. * ASA 81mg PO daily JOHN - Likely secondary to dehydration and vomiting - Stopped Cozaar and HCTZ- per Dr. Toussaint, may restart after discharge and f/u outpatient - Held Metformin, will resume when Cr normalizes - NS@100mls/hr - F/u morning labs Diabetes mellitus - Continue home medications: * Holding Metformin 1,000mg PO BID due to JOHN, will resume when Cr normalizes * Glipizide 10mg PO bid * Simvastatin 20mg po HS (not on formulary)-- on Crestor 5mg PO HS - ISS - medium - Accuchecks ACHS - A1c (11/01): 8.1 History of peripheral vascular disease - Stents placement X2, 2014 - Continue home medications: ASA 81mg PO daily, Cilostazol 50mg PO BID Prophylactic measure GI: Protonix 40mg IV daily DVT: Heparin 5,000 units SC Q8H; SCDs Case discussed with Dr. Norbert Stubbs, PGY-2
[2019-01-04 08:03] LABS: ALB/GLOB RATIO 1.3 (1.0-2.1); ALBUMIN 4.1 g/dL (3.5-5.0); CALCIUM 9.4 mg/dl (8.6-10.4)
[2019-01-04 08:04] LABS: BASO % 0.4 % (0.0-2.0); EOS % 0.1 % (0.0-4.0); HEMOGLOBIN 12.9 g/dL (11.0-16.0); LYMPH # 3.7 K/uL (1.0-4.3); LYMPH % 31.4 % (20.0-40.0); MEAN CELL VOLUME 82.5 fL (81.0-99.0); MEAN CORPUSCULAR HEMOGLOBIN 26.5 pg (27.0-31.0); MEAN CORPUSCULAR HGB CONC 32.1 g/dL (33.0-37.0); MEAN PLATELET VOLUME 9.3 fL (7.2-11.7); MONO # 0.9 K/uL (0.0-0.8); MONO % 7.8 % (0.0-10.0); NEUT # 7.2 K/uL (1.8-7.0); NEUT % 60.3 % (50.0-75.0); NRBC % 0.1 % (0.0-2.0); RBC 4.86 Mil/uL (3.80-5.20); RED CELL DISTRIBUTION WIDTH 14.4 % (11.5-14.5); WHITE BLOOD COUNT 11.9 K/uL (4.8-10.8)
[2019-01-04] MEDS: (Novolin R) Insulin Human Regular 100 units/ml vial SC SCH ×4 (08:10→21:34)
[2019-01-04] MEDS: Cilostazol 50 mg Tab UD PO SCH ×3 (09:51→18:57)
[2019-01-04] MEDS: Sodium Chloride 0.9% 1,000 ML IV SCH ×2 (09:55→21:47)
[2019-01-04] MEDS ORDERED: Pneumococcal 23-Valent Vaccine IM ONE (10:00)
[2019-01-04] MEDS ORDERED: Influenza Vaccine 60 mcg/0.5 mL SYR (4YR UP) IM ONE (10:00)
--- NOTE | 2019-01-04 14:59 | US ---
Date of service: 01/04/2019 PROCEDURE: Ultrasound of the Kidneys HISTORY: Uncontrolled hypertension COMPARISON: CT abdomen and pelvis performed on 01/02/2019 and 12/30/2016.. TECHNIQUE: Grayscale imaging was performed. FINDINGS: RIGHT KIDNEY: Measures: 11.1 cm. Normal in size, contour and echogenicity. No stone, solid mass lesion or hydronephrosis visualized. LEFT KIDNEY: Measures: 10.5 cm. Normal in size, contour and echogenicity. No stone lesion or hydronephrosis visualized. There is a 2.4 x 2.2 x 2.5 cm well-circumscribed round hyperechoic lesion in the lower pole of the left kidney. OTHER FINDINGS: None. IMPRESSION: No hydronephrosis or nephrolithiasis. 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
[2019-01-04] MEDS ORDERED: Simethicone 40 mg/0.6 ml Liquid (30 ml) PO STA (19:16)
[2019-01-05] MEDS: Sodium Chloride 0.9% 1,000 ML IV SCH ×2 (05:38→18:16)
--- NOTE | 2019-01-05 07:27 | CP.PCM.PN ---
Subjective - Date & Time of Evaluation Date of Evaluation: 01/05/19 Time of Evaluation: 08:00 - Subjective Subjective: Medicine Progress Note for Dr. Toussaint: Patient was seen and examined at bedside in no acute distress. Patient states she started to feel nauseated and vomited again last night. Patient states because of that she was not able to sleep very well. Patient denies chest pain, headache, shortness of breath, palpitations, fever or chills. Objective - Vital Signs/Intake and Output Vital Signs (last 24 hours): Temp Pulse Resp BP Pulse Ox 98.7 F 89 20 163/77 H 98 01/05/19 04:51 01/05/19 06:00 01/05/19 06:00 01/05/19 06:00 01/05/19 06:00 Intake and Output: 01/05/19 01/05/19 06:59 18:59 Intake Total 920 Balance 920 - Medications Medications: Current Medications Aspirin (Ecotrin) 81 mg PO DAILY [facility] Last Admin: 01/04/19 09:51 Dose: 81 mg Cilostazol (Pletal) 50 mg PO BID [facility] Last Admin: 01/04/19 18:57 Dose: Not Given Clonidine HCl (Catapres) 0.2 mg PO TID [facility] Last Admin: 01/04/19 18:56 Dose: Not Given Dextrose (Dextrose 50% Inj) 0 ml IV STAT PRN; Protocol PRN Reason: Hypoglycemia Protocol Dextrose (Glutose 15) 0 gm PO ONCE PRN; Protocol PRN Reason: Hypoglycemia Protocol Glipizide (Glucotrol) 10 mg PO BID [facility] Last Admin: 01/04/19 18:57 Dose: Not Given Glucagon (Glucagen Diagnostic Kit) 0 mg IM STAT PRN; Protocol PRN Reason: Hypoglycemia Protocol Heparin Sodium (Porcine) (Heparin) 5,000 units SC Q8 [facility] Last Admin: 01/05/19 05:01 Dose: 5,000 units Hydralazine HCl (Apresoline) 100 mg PO Q8 [facility] Last Admin: 01/05/19 05:01 Dose: 100 mg Dextrose (Dextrose 5% In Water 1000 Ml) 1,000 mls @ 0 mls/hr IV .Q0M PRN; Protocol PRN Reason: Hypoglycemia Protocol Sodium Chloride (Sodium Chloride 0.9%) 1,000 mls @ 100 mls/hr IV .Q10H [facility] Last Admin: 01/05/19 05:38 Dose: 100 mls/hr Influenza Virus Vaccine (Flucelvax Quad [id number] Syr) 60 mcg IM .ONCE ONE Stop: 01/06/19 10:01 Insulin Glargine (Lantus) 15 unit SC [facility] Insulin Human Regular (Novolin R) 0 unit SC [facility]; Protocol [facility] Last Admin: 01/04/19 17:53 Dose: 1,000 mg Metoprolol Tartrate (Lopressor) 5 mg IVP Q8 PRN PRN Reason: Systolic Blood Pressure Last Admin: 01/03/19 14:23 Dose: 5 mg Ondansetron HCl (Zofran Inj) 8 mg IVP Q6H PRN PRN Reason: Nausea/Vomiting Last Admin: 01/05/19 04:55 Dose: 8 mg Pantoprazole Sodium (Protonix Inj) 40 mg IVP DAILY [facility] Last Admin: 01/04/19 09:50 Dose: 40 mg Pneumococcal Polyvalent Vaccine (Pneumovax 23 Vaccine) 0.5 ml IM .ONCE ONE Stop: 01/06/19 10:01 Rosuvastatin Calcium (Crestor) 5 mg PO [facility] Last Admin: 01/04/19 21:39 Dose: 5 mg - Labs Labs: 01/04/19 07:42 01/04/19 07:42 - Constitutional Appears: No Acute Distress - Head Exam Head Exam: ATRAUMATIC, NORMAL INSPECTION - Eye Exam Eye Exam: EOMI, Normal appearance - ENT Exam ENT Exam: Mucous Membranes Moist - Respiratory Exam Respiratory Exam: Clear to Ausculation Bilateral, NORMAL BREATHING PATTERN - GI/Abdominal Exam GI & Abdominal Exam: Soft, Tenderness (epigastric tenderness), Normal Bowel Sounds - Extremities Exam Extremities Exam: Normal Inspection - Neurological Exam Neurological Exam: Alert, Awake, Oriented x3 - Psychiatric Exam Additional comments: somnolent - Skin Skin Exam: Normal Color Assessment and Plan - Assessment and Plan (Free Text) Assessment: Vomiting and Diarrhea - Influenza negative; UA negative - f/u blood and urine culture - f/u stool culture, ova & parasites, leukocytes, c. diff, stool occult - Liquid Diet --> will advance as tolerated - GI Consult: Dr. Huffman --> help appreciated - NPO after midnight for EGD in the AM - Medications * Zofran 4mg IV q6h prn for nausea/vomiting * Protonix 40mg IV daily Hypertension - Monitor with Vital signs Q8H - Cardio Consult: Dr. Jones --> help appreciated - Nephro Consult: Dr. Kong --> help appreciated - Continue home medications: * Clonidine 0.3mg PO TID * Clonidine 0.1mg po q8h prn Systolic BP>170 * Hydralazine 50mg PO Q8H * Cozaar 25mg po daily * Lopressor 5mg IV q8prn systolic B/P >160 * N/S @50mls/hr Diabetes mellitus - Continue home medications: * Metformin 1,000mg PO BID - hold * Glipizide 10mg PO bid * Lantus 15mg HS * Simvastatin 20mg po HS * ISS - high - Accuchecks ACHS - hA1c (11/01): 8.1 History of peripheral vascular disease Stents placement 2014 Continue home medications: * ASA 81mg PO daily * Cilostazol 50mg PO BID * Simvastatin 20mg po HS Prophylactic measure GI: Protonix 40mg IV daily DVT: Heparin 5,000 units SC Q8H; SCDs Case discussed with Dr. Norbert Casillas PGY-2
[2019-01-05 07:31] LABS: BASO # 0.1 K/uL (0.0-0.2); BASO % 0.6 % (0.0-2.0); HEMOGLOBIN 13.6 g/dL (11.0-16.0); LYMPH % 27.3 % (20.0-40.0); MEAN CELL VOLUME 81.8 fL (81.0-99.0); MEAN CORPUSCULAR HEMOGLOBIN 26.6 pg (27.0-31.0); MEAN CORPUSCULAR HGB CONC 32.5 g/dL (33.0-37.0); MEAN PLATELET VOLUME 9.3 fL (7.2-11.7); MONO # 0.7 K/uL (0.0-0.8); MONO % 6.3 % (0.0-10.0); NEUT # 7.3 K/uL (1.8-7.0); NEUT % 65.8 % (50.0-75.0); NRBC % 0.1 % (0.0-2.0); RBC 5.1 Mil/uL (3.80-5.20); RED CELL DISTRIBUTION WIDTH 14.2 % (11.5-14.5); WHITE BLOOD COUNT 11.1 K/uL (4.8-10.8)
--- NOTE | 2019-01-05 07:46 | CP.PCM.PN ---
Subjective - Date & Time of Evaluation Date of Evaluation: 01/05/19 Time of Evaluation: 07:35 - Subjective Subjective: patient has no chest pain. blood pressure has been elevated Objective - Vital Signs/Intake and Output Vital Signs (last 24 hours): Temp Pulse Resp BP Pulse Ox 98.2 F 96 H 20 198/80 H 97 01/05/19 07:15 01/05/19 07:15 01/05/19 07:15 01/05/19 07:15 01/05/19 07:15 Intake and Output: 01/05/19 01/05/19 06:59 18:59 Intake Total 920 Balance 920 - Medications Medications: Current Medications Aspirin (Ecotrin) 81 mg PO DAILY [facility] Last Admin: 01/04/19 09:51 Dose: 81 mg Cilostazol (Pletal) 50 mg PO BID [facility] Last Admin: 01/04/19 18:57 Dose: Not Given Clonidine HCl (Catapres) 0.2 mg PO TID [facility] Last Admin: 01/04/19 18:56 Dose: Not Given Dextrose (Dextrose 50% Inj) 0 ml IV STAT PRN; Protocol PRN Reason: Hypoglycemia Protocol Dextrose (Glutose 15) 0 gm PO ONCE PRN; Protocol PRN Reason: Hypoglycemia Protocol Glipizide (Glucotrol) 10 mg PO BID [facility] Last Admin: 01/04/19 18:57 Dose: Not Given Glucagon (Glucagen Diagnostic Kit) 0 mg IM STAT PRN; Protocol PRN Reason: Hypoglycemia Protocol Heparin Sodium (Porcine) (Heparin) 5,000 units SC Q8 [facility] Last Admin: 01/05/19 05:01 Dose: 5,000 units Hydralazine HCl (Apresoline) 100 mg PO Q8 [facility] Last Admin: 01/05/19 05:01 Dose: 100 mg Dextrose (Dextrose 5% In Water 1000 Ml) 1,000 mls @ 0 mls/hr IV .Q0M PRN; Protocol PRN Reason: Hypoglycemia Protocol Sodium Chloride (Sodium Chloride 0.9%) 1,000 mls @ 100 mls/hr IV .Q10H [facility] Last Admin: 01/05/19 05:38 Dose: 100 mls/hr Influenza Virus Vaccine (Flucelvax Quad [id number] Syr) 60 mcg IM .ONCE ONE Stop: 01/06/19 10:01 Insulin Glargine (Lantus) 15 unit SC [facility] Insulin Human Regular (Novolin R) 0 unit SC [facility]; Protocol [facility] Last Admin: 01/04/19 17:53 Dose: 1,000 mg Metoprolol Tartrate (Lopressor) 5 mg IVP Q8 PRN PRN Reason: Systolic Blood Pressure Last Admin: 01/03/19 14:23 Dose: 5 mg Ondansetron HCl (Zofran Inj) 8 mg IVP Q6H PRN PRN Reason: Nausea/Vomiting Last Admin: 01/05/19 04:55 Dose: 8 mg Pantoprazole Sodium (Protonix Inj) 40 mg IVP DAILY [facility] Last Admin: 01/04/19 09:50 Dose: 40 mg Pneumococcal Polyvalent Vaccine (Pneumovax 23 Vaccine) 0.5 ml IM .ONCE ONE Stop: 01/06/19 10:01 Rosuvastatin Calcium (Crestor) 5 mg PO [facility] Last Admin: 01/04/19 21:39 Dose: 5 mg - Labs Labs: 01/05/19 07:25 01/04/19 07:42 - Constitutional Appears: Non-toxic - Head Exam Head Exam: NORMAL INSPECTION - Eye Exam Eye Exam: Normal appearance - ENT Exam ENT Exam: Mucous Membranes Moist - Neck Exam Neck Exam: Full ROM - Respiratory Exam Respiratory Exam: NORMAL BREATHING PATTERN - Cardiovascular Exam Cardiovascular Exam: REGULAR RHYTHM - GI/Abdominal Exam GI & Abdominal Exam: Normal Bowel Sounds - Rectal Exam Rectal Exam: Deferred - Extremities Exam Extremities Exam: Pedal Edema - Back Exam Back Exam: NORMAL INSPECTION - Neurological Exam Neurological Exam: Alert - Psychiatric Exam Psychiatric exam: Normal Affect - Skin Skin Exam: Normal Color Assessment and Plan (1) Hypertension Assessment & Plan: Patient will need controlled blood pressure. I recommend increasing clonidine to 0.3 mg TID Status: Acute (2) Diabetes mellitus Status: Acute (3) Hypercholesterolemia Status: Acute (4) Peripheral vascular disease Assessment & Plan: continue antiplatelet Status: Acute
[2019-01-05 07:49] LABS: ALB/GLOB RATIO 1.3 (1.0-2.1); ALBUMIN 4.4 g/dL (3.5-5.0); CALCIUM 9.3 mg/dl (8.6-10.4)
[2019-01-05] MEDS: (Novolin R) Insulin Human Regular 100 units/ml vial SC SCH ×4 (08:34→22:06)
[2019-01-05] MEDS: Cilostazol 50 mg Tab UD PO SCH ×2 (09:40→21:10)
--- NOTE | 2019-01-05 11:43 | CP.PCM.CON ---
<Derek French - Last Filed: 01/05/19 13:13> History of Present Illness - History of Present Illness History of Present Illness: Derek French PGY2 Nephrology Consult NOte for Dr. Kong 78 year old female with past medical history of DM Type II, HTN, PVD who presented to the ER for vomiting and diarrhea. Nephrology has been consulted for uncontrolled HTN and JOHN. Patient states her symptoms started on 01/01 after after she went out to eat lunch. Today she states she is still vomiting and nauseas. She states the vomit is non bilious and non bloody. In addition, she states she has been having loose stools. Patient states she was diagnosed with HTN 5 years ago and has been taking her medications at home and usually her BP is well controlled. Patient denies headaches, chest pain, dizziness, SOB, fever, chills, abdominal pain, dysuria, pyuria or any other complaints at this time. PMD: Dr. Toussaint Past Medical History: DM Type II, HTN, PVD, Right knee OA Past Surgical History: Right arm cyst removal, Attempted angioplasty of chronic total occulusion of the distal left superficial femoral artery (04/01) and Angioplasty of LLE vessels (07/2015) Family History: Mother, HTn, at age 97 Medications: Clonidine 0.2mg PO TID, Losartan 100mg PO daily, HCTZ 25po daily; Hydralazine 100mg PO q8h, Cilostazol 50mg PO BID, Metformin 1,000mg PO BID; Glipizide 10mg PO bid; Simvastatin 20mg HS Allergies: Iodine Social History: Retired, Lives alone. Denies current or former use of tobacco. Denies illicit drug or alcohol use. Review of Systems - Constitutional Constitutional: absent: Chills, Fever, Headache, Weakness - EENT Eyes: absent: Blurred Vision, Change in Vision - Cardiovascular Cardiovascular: absent: Chest Pain, Chest Pain at Rest, Diaphoresis, Dyspnea - Respiratory Respiratory: absent: Cough, Dyspnea, Chest Congestion, Pain with Coughing - Gastrointestinal Gastrointestinal: Loose Stools, Nausea, Vomiting. absent: Diarrhea, Dyspepsia, Hematemesis, Hematochezia - Genitourinary Genitourinary: absent: Change in Urinary Stream, Difficulty Urinating, Dysuria, Hematuria, Pyuria - Musculoskeletal Musculoskeletal: absent: Muscle Weakness, Numbness, Tingling - Neurological Neurological: absent: Syncope, Tingling, Vertigo, Weakness - Hematologic/Lymphatic Hematologic: absent: Easy Bleeding, Easy Bruising Past Patient History - Infectious Disease Hx of Infectious Diseases: None - Past Medical History & Family History Past Medical History?: Yes - Past Social History Smoking Status: Never Smoked - CARDIAC Hx Hypercholesterolemia: Yes Hx Hypertension: Yes - HEENT Hx HEENT Problems: No - ENDOCRINE/METABOLIC Hx Endocrine Disorders: Yes Hx Diabetes Mellitus Type 2: Yes - INTEGUMENTARY Hx Dermatological Problems: No - MUSCULOSKELETAL/RHEUMATOLOGICAL Hx Fractures: Yes (toes) - GENITOURINARY/GYNECOLOGICAL Hx Genitourinary Disorders: No - PSYCHIATRIC Hx Substance Use: No - SURGICAL HISTORY Hx Surgeries: Yes Hx Angiogram: Yes Other/Comment: cyst from arm-removed - ANESTHESIA Hx Anesthesia: Yes Hx Anesthesia Reactions: No Hx Malignant Hyperthermia: No Meds Allergies/Adverse Reactions: Allergies Allergy/AdvReac Type Severity Reaction Status Date / Time iodine Allergy Verified 01/02/19 13:39 - Medications Medications: Current Medications Aspirin (Ecotrin) 81 mg PO DAILY [facility] Last Admin: 01/05/19 09:33 Dose: 81 mg Cilostazol (Pletal) 50 mg PO BID [facility] Last Admin: 01/05/19 09:40 Dose: 50 mg Clonidine HCl (Catapres) 0.2 mg PO TID [facility] Last Admin: 01/05/19 09:33 Dose: 0.2 mg Dextrose (Dextrose 50% Inj) 0 ml IV STAT PRN; Protocol PRN Reason: Hypoglycemia Protocol Dextrose (Glutose 15) 0 gm PO ONCE PRN; Protocol PRN Reason: Hypoglycemia Protocol Glipizide (Glucotrol) 10 mg PO BID [facility] Last Admin: 01/05/19 09:33 Dose: 10 mg Glucagon (Glucagen Diagnostic Kit) 0 mg IM STAT PRN; Protocol PRN Reason: Hypoglycemia Protocol Heparin Sodium (Porcine) (Heparin) 5,000 units SC Q8 [facility] Last Admin: 01/05/19 05:01 Dose: 5,000 units Hydralazine HCl (Apresoline) 100 mg PO Q8 [facility] Last Admin: 01/05/19 05:01 Dose: 100 mg Dextrose (Dextrose 5% In Water 1000 Ml) 1,000 mls @ 0 mls/hr IV .Q0M PRN; Protocol PRN Reason: Hypoglycemia Protocol Sodium Chloride (Sodium Chloride 0.9%) 1,000 mls @ 100 mls/hr IV .Q10H [facility] Last Admin: 01/05/19 05:38 Dose: 100 mls/hr Influenza Virus Vaccine (Flucelvax Quad [id number] Syr) 60 mcg IM .ONCE ONE Stop: 01/06/19 10:01 Insulin Glargine (Lantus) 15 unit SC [facility] Insulin Human Regular (Novolin R) 0 unit SC [facility]; Protocol Last Admin: 01/05/19 11:39 Dose: 4 units [facility] Last Admin: 01/04/19 17:53 Dose: 1,000 mg Metoprolol Tartrate (Lopressor) 5 mg IVP Q8 PRN PRN Reason: Systolic Blood Pressure Last Admin: 01/03/19 14:23 Dose: 5 mg Ondansetron HCl (Zofran Inj) 8 mg IVP Q6H PRN PRN Reason: Nausea/Vomiting Last Admin: 01/05/19 04:55 Dose: 8 mg Pantoprazole Sodium (Protonix Inj) 40 mg IVP DAILY [facility] Last Admin: 01/05/19 09:33 Dose: 40 mg Pneumococcal Polyvalent Vaccine (Pneumovax 23 Vaccine) 0.5 ml IM .ONCE ONE Stop: 01/06/19 10:01 Rosuvastatin Calcium (Crestor) 5 mg PO [facility] Last Admin: 01/04/19 21:39 Dose: 5 mg Physical Exam - Constitutional Appears: Non-toxic, No Acute Distress Additional comments: Drowsy - Head Exam Head Exam: ATRAUMATIC, NORMAL INSPECTION, NORMOCEPHALIC - Eye Exam Eye Exam: Normal appearance - ENT Exam ENT Exam: Mucous Membranes Moist - Respiratory Exam Respiratory Exam: Clear to Auscultation Bilateral, NORMAL BREATHING PATTERN - Cardiovascular Exam Cardiovascular Exam: REGULAR RHYTHM, +S1, +S2 - GI/Abdominal Exam GI & Abdominal Exam: Normal Bowel Sounds, Soft - Extremities Exam Extremities exam: Positive for: pedal pulses present. Negative for: pedal edema, tenderness - Neurological Exam Neurological exam: Alert, CN II-XII Intact, Oriented x3 Results - Vital Signs Recent Vital Signs: Last Vital Signs Temp 98.2 F 01/05/19 07:15 Pulse 96 H 01/05/19 07:15 Resp 20 01/05/19 07:15 BP 182/67 H 01/05/19 09:00 Pulse Ox 97 01/05/19 07:15 - Labs Result Diagrams: 01/05/19 07:25 01/05/19 07:25 Labs: Laboratory Results - last 24 hr 01/03/19 01/04/19 01/04/19 20:57 06:33 11:15 WBC RBC Hgb Hct MCV MCH MCHC RDW Plt Count MPV Neut % (Auto) Lymph % (Auto) [place] % (Auto) Eos % (Auto) Baso % (Auto) Neut # (Auto) Lymph # (Auto) [place] # (Auto) Eos # (Auto) Baso # (Auto) Sodium Potassium Chloride Carbon Dioxide Anion Gap BUN Creatinine Est GFR ( Amer) Est GFR (Non-Af Amer) POC Glucose (mg/dL) 281 H 174 H 266 H Random Glucose Calcium Phosphorus Magnesium Total Bilirubin AST ALT Alkaline Phosphatase Total Protein Albumin Globulin Albumin/Globulin Ratio 01/04/19 01/04/19 01/05/19 17:44 21:29 06:22 WBC RBC Hgb Hct MCV MCH MCHC RDW Plt Count MPV Neut % (Auto) Lymph % (Auto) [place] % (Auto) Eos % (Auto) Baso % (Auto) Neut # (Auto) Lymph # (Auto) [place] # (Auto) Eos # (Auto) Baso # (Auto) Sodium Potassium Chloride Carbon Dioxide Anion Gap BUN Creatinine Est GFR ( Amer) Est GFR (Non-Af Amer) POC Glucose (mg/dL) 231 H 186 H 188 H Random Glucose Calcium Phosphorus Magnesium Total Bilirubin AST ALT Alkaline Phosphatase Total Protein Albumin Globulin Albumin/Globulin Ratio 01/05/19 01/05/19 01/05/19 07:25 07:25 11:15 WBC 11.1 H RBC 5.10 Hgb 13.6 Hct 41.7 MCV 81.8 MCH 26.6 L MCHC 32.5 L RDW 14.2 Plt Count 274 MPV 9.3 Neut % (Auto) 65.8 Lymph % (Auto) 27.3 [place] % (Auto) 6.3 Eos % (Auto) 0.0 Baso % (Auto) 0.6 Neut # (Auto) 7.3 H Lymph # (Auto) 3.0 [place] # (Auto) 0.7 Eos # (Auto) 0.0 Baso # (Auto) 0.1 Sodium 133 Potassium 3.6 Chloride 96 L Carbon Dioxide 27 Anion Gap 15 BUN 31 H Creatinine 1.6 H Est GFR ( Amer) 38 Est GFR (Non-Af Amer) 31 POC Glucose (mg/dL) 248 H Random Glucose 223 H D Calcium 9.3 Phosphorus 3.1 Magnesium 1.6 Total Bilirubin 1.0 AST 22 ALT 9 Alkaline Phosphatase 64 Total Protein 7.9 Albumin 4.4 Globulin 3.5 Albumin/Globulin Ratio 1.3 Assessment & Plan - Assessment and Plan (Free Text) Assessment: 78 year old female with past medical history of DM Type II, HTN, PVD who presented to the ER for vomiting and diarrhea. Nephrology has been consulted for uncontrolled HTN and JOHN. Plan: 1) Vomiting and Diarrhea secondary to Gastroenteritis - Influenza negative; UA negative - blood and urine cultures pending - stool culture, ova & parasites, leukocytes, c. 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 dating back to CT Scan 12/30/16 - plasma metanephrines pending - TSH, Free T4 pending - dexamethose suppression test today, with free AM cortisol tomorrow - one dose losartan 25mg given, will reevaluate tomorrow as kidney function is improving 3) Diabetes mellitus - hold metformin due to renal function - Glipizide 10mg PO bid - ISS - low with Accuchecks ACHS - pending A1c, Lipid Panel pending 4) History of peripheral vascular disease - Stents placement , 2014 - Continue home medications ASA 81mg PO daily and Cilostazol 50mg PO BID 5) JOHN - likely prerenal , improving with fluids - BUN 31, Cr 1.6 - NS @50 - Urine Sodium, urine Cr pending - urine microalbumin pending - urine protein pending Prophylactic measure GI: Protonix 40mg IV daily DVT: Heparin 5,000 units SC Q8H; SCDs <Abhilash Kong - Last Filed: 01/06/19 08:03> Meds - Medications Medications: Current Medications Aspirin (Ecotrin) 81 mg PO DAILY [facility] Last Admin: 01/05/19 09:33 Dose: 81 mg Cilostazol (Pletal) 50 mg PO BID [facility] Last Admin: 01/05/19 21:10 Dose: Not Given Clonidine HCl (Catapres) 0.1 mg PO Q8H PRN PRN Reason: HTN Clonidine HCl (Catapres) 0.2 mg PO BID [facility] Dextrose (Dextrose 50% Inj) 0 ml IV STAT PRN; Protocol PRN Reason: Hypoglycemia Protocol Dextrose (Glutose 15) 0 gm PO ONCE PRN; Protocol PRN Reason: Hypoglycemia Protocol Glipizide (Glucotrol) 10 mg PO BID [facility] Last Admin: 01/05/19 18:16 Dose: 10 mg Glucagon (Glucagen Diagnostic Kit) 0 mg IM STAT PRN; Protocol PRN Reason: Hypoglycemia Protocol Heparin Sodium (Porcine) (Heparin) 5,000 units SC Q8 [facility] Last Admin: 01/06/19 06:51 Dose: Not Given Hydralazine HCl (Apresoline) 100 mg PO Q8 [facility] Last Admin: 01/05/19 13:12 Dose: 100 mg Dextrose (Dextrose 5% In Water 1000 Ml) 1,000 mls @ 0 mls/hr IV .Q0M PRN; Protocol PRN Reason: Hypoglycemia Protocol Sodium Chloride (Sodium Chloride 0.9%) 1,000 mls @ 100 mls/hr IV .Q10H [facility] Last Admin: 01/05/19 18:16 Dose: 100 mls/hr Influenza Virus Vaccine (Flucelvax Quad 1398-9111 Syr) 60 mcg IM .ONCE ONE Stop: 01/06/19 10:01 Insulin Glargine (Lantus) 15 unit SC HS [facility] Last Admin: 01/05/19 21:10 Dose: Not Given Insulin Human Regular (Novolin R) 0 unit SC ACHS [facility]; Protocol Last Admin: 01/05/19 22:06 Dose: Not Given Losartan Potassium (Cozaar) 25 mg PO DAILY [facility] Last Admin: 01/05/19 13:26 Dose: 25 mg [facility] Last Admin: 01/04/19 17:53 Dose: 1,000 mg Metoprolol Tartrate (Lopressor) 5 mg IVP Q8 PRN PRN Reason: Systolic Blood Pressure Ondansetron HCl (Zofran Inj) 8 mg IVP Q6H PRN PRN Reason: Nausea/Vomiting Last Admin: 01/05/19 04:55 Dose: 8 mg Pantoprazole Sodium (Protonix Inj) 40 mg IVP DAILY [facility] Last Admin: 01/05/19 09:33 Dose: 40 mg Pneumococcal Polyvalent Vaccine (Pneumovax 23 Vaccine) 0.5 ml IM .ONCE ONE Stop: 01/06/19 10:01 Rosuvastatin Calcium (Crestor) 5 mg PO HS [facility] Last Admin: 01/05/19 21:07 Dose: 5 mg Results - Vital Signs Recent Vital Signs: Last Vital Signs Temp 98.4 F 01/06/19 07:05 Pulse 77 01/06/19 07:05 Resp 20 01/06/19 07:05 BP 165/69 H 01/06/19 07:05 Pulse Ox 97 01/06/19 07:05 - Labs Result Diagrams: 01/05/19 07:25 01/05/19 07:25 Labs: Laboratory Results - last 24 hr 01/05/19 01/05/19 01/05/19 07:25 11:15 13:50 POC Glucose (mg/dL) 248 H Hemoglobin A1c 7.9 H Uric Acid 6.9 Triglycerides 107 D Cholesterol 183 LDL Cholesterol Direct 113 HDL Cholesterol 53 Amylase 88 Lipase 89 Carcinoembryonic Ag 1.0 CA 19-9 Antigen < 1.4 CA 125 Antigen 6.9 Free T4 TSH 3rd Generation 0.90 Ur Random Creatinine U Random Total Protein Ur Random Sodium Urine Microalbumin 01/05/19 01/05/19 01/05/19 13:50 16:48 22:01 POC Glucose (mg/dL) 206 H Hemoglobin A1c Uric Acid Triglycerides Cholesterol LDL Cholesterol Direct HDL Cholesterol Amylase Lipase Carcinoembryonic Ag CA 19-9 Antigen CA 125 Antigen Free T4 1.16 TSH 3rd Generation Ur Random Creatinine U Random Total Protein Ur Random Sodium Urine Microalbumin 114.3 H 01/05/19 01/06/19 22:01 02:08 POC Glucose (mg/dL) 166 H Hemoglobin A1c Uric Acid Triglycerides Cholesterol LDL Cholesterol Direct HDL Cholesterol Amylase Lipase Carcinoembryonic Ag CA 19-9 Antigen CA 125 Antigen Free T4 TSH 3rd Generation Ur Random Creatinine 134.0 U Random Total Protein 27.0 H Ur Random Sodium 90 Urine Microalbumin Attending/Attestation - Attestation I have personally seen and examined this patient.: Yes I have fully participated in the care of the patient.: Yes I have reviewed all pertinent clinical information: Yes Notes (Text): Patient seen and examined; I agree with the resident's note as above with the following additions/edits: 78 yo F w/ pmh of htn, dm, PAD, admitted with intractable vomiting, nephrology being consulted for uncontrolled HTN; Patient drowsy at time of our encounter; records during admission show that patient presented with markedly elevated BP and was given 2 doses of enalaprilat two days ago as well as losartan 100 mg; BP subsequently dropped precipitously and JOHN ensued, likely due to "normotensive ATN"; renal function has since improved with losartan on hold but BP again markedly elevated; Patient given 25 mg losartan by us today and again had precipitous drop in BP; 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
[2019-01-05] MEDS ORDERED: Sodium Chloride 0.9% 1,000 ML IV SCH (12:56)
[2019-01-05 13:20] LABS: AMYLASE 88 U/L (30-110); LIPASE 89 U/L (23-300)
[2019-01-05 14:11] LABS: HDL CHOLESTEROL 53 mg/dL (30-70); URIC ACID 6.9 mg/dL (2.2-7.5)
[2019-01-05 14:23] LABS: LDL CHOLESTEROL 113 mg/dL (0-129)
[2019-01-05] MEDS ORDERED: Metoprolol 1 mg/ml Inj IVP PRN (14:48)
--- NOTE | 2019-01-05 15:53 | PN ---
DATE: 01/05/2019 LOCATION: 658, bed B. SUBJECTIVE: This is an 78-year-old female seen and examined initially for GI consultation on 01/04/2019 as requested by the admitting medical team, reexamined again today and seen by the beauty consultant, Dr. Jones with intermittent period of midepigastric pain, nausea, dyspepsia, but no chest pain, no palpitation. The entire chart is reviewed including but not limited to the most recent lab and radiology study results, current and the previous medication list, current and the previous medical events. Case discussed with the staff at length. Today's lab showed hemoglobin of 13.6, hematocrit 41 with white blood cells 11.1. BUN 31, creatinine 1.6. Blood glucose level 223 with normal liver function test. Abdominopelvic CAT scan as well as renal ultrasound reports reviewed, with reported moderate hiatus hernia and adrenal gland nodular hypertrophy. PHYSICAL EXAMINATION: GENERAL: An 78-year-old female, awake, alert, oriented. VITAL SIGNS: Afebrile with pulse of 92, respiratory rate 20-22, blood pressure of 190/84. HEENT: Showed dry oral mucoid membrane. Nonicteric sclerae. LUNGS: Few scattered crepitation. Decreased air entry at bases. HEART: Positive S1 and S2 with increased rate. ABDOMEN: Soft with mild generalized tenderness mainly in the midepigastric and midabdominal line. No mass or organomegaly. No rebound tenderness or guarding. EXTREMITIES: Without significant clubbing, cyanosis or edema. No reported new neurological deficits, sensory or motor. IMPRESSION: 1. Poorly controlled hypertension. 2. Diabetes mellitus with possible diabetic gastroparesis. 3. Re-exacerbation of peptic ulcer disease, rule out gastric versus duodenal ulcer. 4. Known history of peripheral vascular disease, hyperlipidemia. 5. Dehydration with mild renal insufficiency. SUGGESTIONS: 1. Agree with your plan. 2. poorly controlled hypertension. 3. Cancer markers. 4. Serum lipase, amylase level. 5. Endoscopic evaluation of the upper GI tract when the patient is more stable clinically. 6. Reglan IV. 7. Further recommendation to follow. Ginger Cabrera MD
[2019-01-05] MEDS: (Lantus) Insulin Glargine, Recombinant SC SCH (21:10)
[2019-01-05] MEDS ORDERED: (Lantus) Insulin Glargine, Recombinant SC SCH (22:00)
--- NOTE | 2019-01-06 07:40 | CP.PCM.PN ---
Subjective - Date & Time of Evaluation Date of Evaluation: 01/06/19 Time of Evaluation: 07:22 - Subjective Subjective: Progress note for Dr. Toussaint Patient was seen and examined at bedside in no acute distress. Patient is oob to chair. Patient has no complaints today; she denies chest pain, palpitations, dyspnea, nausea, vomiting, fevers, headaches, abdominal pain, leg pain. Patient is NPO for procedure. No acute events overnight. Objective - Vital Signs/Intake and Output Vital Signs (last 24 hours): Temp Pulse Resp BP Pulse Ox 98.4 F 66 20 123/61 98 01/06/19 00:10 01/06/19 00:10 01/06/19 00:10 01/06/19 00:10 01/06/19 00:10 Intake and Output: 01/06/19 01/06/19 06:59 18:59 Intake Total 800 Balance 800 - Medications Medications: Current Medications Aspirin (Ecotrin) 81 mg PO DAILY [facility] Last Admin: 01/05/19 09:33 Dose: 81 mg Cilostazol (Pletal) 50 mg PO BID [facility] Last Admin: 01/05/19 21:10 Dose: Not Given Clonidine HCl (Catapres) 0.1 mg PO Q8H PRN PRN Reason: HTN Clonidine HCl (Catapres) 0.2 mg PO BID [facility] Dextrose (Dextrose 50% Inj) 0 ml IV STAT PRN; Protocol PRN Reason: Hypoglycemia Protocol Dextrose (Glutose 15) 0 gm PO ONCE PRN; Protocol PRN Reason: Hypoglycemia Protocol Glipizide (Glucotrol) 10 mg PO BID [facility] Last Admin: 01/05/19 18:16 Dose: 10 mg Glucagon (Glucagen Diagnostic Kit) 0 mg IM STAT PRN; Protocol PRN Reason: Hypoglycemia Protocol Heparin Sodium (Porcine) (Heparin) 5,000 units SC Q8 [facility] Last Admin: 01/06/19 06:51 Dose: Not Given Hydralazine HCl (Apresoline) 100 mg PO Q8 [facility] Last Admin: 01/05/19 13:12 Dose: 100 mg Dextrose (Dextrose 5% In Water 1000 Ml) 1,000 mls @ 0 mls/hr IV .Q0M PRN; Protocol PRN Reason: Hypoglycemia Protocol Sodium Chloride (Sodium Chloride 0.9%) 1,000 mls @ 100 mls/hr IV .Q10H [facility] Last Admin: 01/05/19 18:16 Dose: 100 mls/hr Influenza Virus Vaccine (Flucelvax Quad [id number] Syr) 60 mcg IM .ONCE ONE Stop: 01/06/19 10:01 Insulin Glargine (Lantus) 15 unit SC [facility] Last Admin: 01/05/19 21:10 Dose: Not Given Insulin Human Regular (Novolin R) 0 unit SC [facility]; Protocol Last Admin: 01/05/19 22:06 Dose: Not Given Losartan Potassium (Cozaar) 25 mg PO DAILY [facility] Last Admin: 01/05/19 13:26 Dose: 25 mg Metformin [facility] ([facility]) [facility] Last Admin: 01/04/19 17:53 Dose: 1,000 mg Metoprolol Tartrate (Lopressor) 5 mg IVP Q8 PRN PRN Reason: Systolic Blood Pressure Ondansetron HCl (Zofran Inj) 8 mg IVP Q6H PRN PRN Reason: Nausea/Vomiting Last Admin: 01/05/19 04:55 Dose: 8 mg Pantoprazole Sodium (Protonix Inj) 40 mg IVP DAILY [facility] Last Admin: 01/05/19 09:33 Dose: 40 mg Pneumococcal Polyvalent Vaccine (Pneumovax 23 Vaccine) 0.5 ml IM .ONCE ONE Stop: 01/06/19 10:01 Rosuvastatin Calcium (Crestor) 5 mg PO [facility] Last Admin: 01/05/19 21:07 Dose: 5 mg - Labs Labs: 01/05/19 07:25 01/05/19 07:25 - Additional Findings Additional findings: - Constitutional Appears: No Acute Distress - Head Exam Head Exam: NORMAL INSPECTION - Eye Exam Eye Exam: EOMI, Normal appearance - Respiratory Exam Respiratory Exam: Clear to Ausculation Bilateral, NORMAL BREATHING PATTERN. absent: Rhonchi, Wheezes, Respiratory Distress - Cardiovascular Exam Cardiovascular Exam: REGULAR RHYTHM, +S1, +S2 - GI/Abdominal Exam GI & Abdominal Exam: Soft, Normal Bowel Sounds. absent: Distended, Firm, Guarding, Tenderness - Extremities Exam Extremities Exam: Normal Inspection - Neurological Exam Neurological Exam: Alert, Awake, Oriented x3 - Psychiatric Exam Psychiatric exam: Normal Affect, Normal Mood - Skin Skin Exam: Dry, Intact, Normal Color, Warm Assessment and Plan - Assessment and Plan (Free Text) Plan: Vomiting and Diarrhea - Influenza negative; UA negative - Urine culture: contaminated urine sample - f/u stool culture, ova & parasites, leukocytes, c. diff, stool occult - GI Consult: Dr. Huffman --> help appreciated - S/P Endoscopy with Dr. Huffman on 01/06/19; Results showed: * Candidiasis esophagitis--> started diflucan 100mg po daily (x2 weeks) * Nonbleeding gastric ulcer (biopsied) --> started Protonix 40mg po daily (x 8 weeks) * medium sized hiatal hernia * erythematous mucosa in the prepyloric region of the stomach * Patient must f/u with Dr. Huffman in 4 weeks - Advanced diet to [facility] - Medications * Zofran 4mg IV q6h prn for nausea/vomiting * Protonix 40mg po daily Hypertension - Monitor with Vital signs Q8H - Cardio Consult: Dr. 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 Kong, help appreciated - Held Cozaar, HCTZ and Metformin, will resume when Cr normalizes - NS@100mls/hr - F/u morning labs Diabetes mellitus - Continue home medications: * Holding Metformin 1,000mg PO BID due to JOHN, will resume when Cr normalizes * Glipizide 10mg PO bid * Lantus 15mg HS * Crestor 5mg PO HS (home medication Simvastatin 20mg po HS not on formulary) * ISS - high - Accuchecks ACHS - A1c (11/01): 8.1 History of peripheral vascular disease - Stents placement X2, 2015 - Continue home medications: ASA 81mg PO daily, Cilostazol 50mg PO BID, Crestor 5mg PO HS (home medication Simvastatin 20mg po HS not on formulary) Prophylactic measure GI: Protonix 40mg IV daily DVT: Heparin 5,000 units SC Q8H; SCDs Case discussed with Dr. Norbert Stubbs, PGY-2
[2019-01-06] MEDS: (Novolin R) Insulin Human Regular 100 units/ml vial SC SCH ×4 (08:00→22:26)
[2019-01-06 08:25] LABS: ALB/GLOB RATIO 1.3 (1.0-2.1); ALBUMIN 3.5 g/dL (3.5-5.0); CALCIUM 8.5 mg/dl (8.6-10.4)
[2019-01-06 08:29] LABS: BASO % 0.4 % (0.0-2.0); EOS % 0.3 % (0.0-4.0); LYMPH # 3.6 K/uL (1.0-4.3); LYMPH % 37.2 % (20.0-40.0); MEAN CELL VOLUME 82.4 fL (81.0-99.0); MEAN CORPUSCULAR HEMOGLOBIN 26.5 pg (27.0-31.0); MEAN CORPUSCULAR HGB CONC 32.1 g/dL (33.0-37.0); MEAN PLATELET VOLUME 9.4 fL (7.2-11.7); MONO # 0.7 K/uL (0.0-0.8); MONO % 7.1 % (0.0-10.0); NEUT # 5.3 K/uL (1.8-7.0); NRBC % 0.1 % (0.0-2.0); RBC 4.21 Mil/uL (3.80-5.20); RED CELL DISTRIBUTION WIDTH 14.2 % (11.5-14.5); WHITE BLOOD COUNT 9.7 K/uL (4.8-10.8)
[2019-01-06 08:31] LABS: HEMOGLOBIN 11.2 g/dL (11.0-16.0)
--- NOTE | 2019-01-06 09:41 | CP.PCM.PN ---
<Marcin Doty - Last Filed: 01/06/19 19:05> Subjective - Date & Time of Evaluation Date of Evaluation: 01/06/19 Time of Evaluation: 09:39 - Subjective Subjective: Nephrology progress note for Dr. Launn Dtoy, PGY - 2 Patient seen and examined at bedside. No acute overnight events. Patient denies any urinary complaints, including hematuria, urgency, retention, dysuria, or foul smell. States that her urine is clear. BP elevated this morning per RN, labetalol given with recheck at 140s/80s. Patient states that her vomiting has resolved; has not had a bm yet today. Is going for EGD after my interview. Objective - Vital Signs/Intake and Output Vital Signs (last 24 hours): Temp Pulse Resp BP Pulse Ox 98.4 F 77 20 165/69 H 97 01/06/19 07:05 01/06/19 07:05 01/06/19 07:05 01/06/19 07:05 01/06/19 07:05 Intake and Output: 01/06/19 01/06/19 06:59 18:59 Intake Total 800 Balance 800 - Medications Medications: Current Medications Aspirin (Ecotrin) 81 mg PO DAILY [facility] Last Admin: 01/06/19 09:01 Dose: Not Given Cilostazol (Pletal) 50 mg PO BID [facility] Last Admin: 01/05/19 21:10 Dose: Not Given Clonidine HCl (Catapres) 0.1 mg PO Q8H PRN PRN Reason: HTN Clonidine HCl (Catapres) 0.2 mg PO BID [facility] Last Admin: 01/06/19 09:01 Dose: Not Given Dextrose (Dextrose 50% Inj) 0 ml IV STAT PRN; Protocol PRN Reason: Hypoglycemia Protocol Dextrose (Glutose 15) 0 gm PO ONCE PRN; Protocol PRN Reason: Hypoglycemia Protocol Glipizide (Glucotrol) 10 mg PO BID [facility] Last Admin: 01/06/19 09:01 Dose: Not Given Glucagon (Glucagen Diagnostic Kit) 0 mg IM STAT PRN; Protocol PRN Reason: Hypoglycemia Protocol Heparin Sodium (Porcine) (Heparin) 5,000 units SC Q8 [facility] Last Admin: 01/06/19 06:51 Dose: Not Given Hydralazine HCl (Apresoline) 100 mg PO Q8 [facility] Last Admin: 01/05/19 13:12 Dose: 100 mg Dextrose (Dextrose 5% In Water 1000 Ml) 1,000 mls @ 0 mls/hr IV .Q0M PRN; Protocol PRN Reason: Hypoglycemia Protocol Sodium Chloride (Sodium Chloride 0.9%) 1,000 mls @ 100 mls/hr IV .Q10H [facility] Last Admin: 01/05/19 18:16 Dose: 100 mls/hr Influenza Virus Vaccine (Flucelvax Quad 3576-5745 Syr) 60 mcg IM .ONCE ONE Stop: 01/06/19 10:01 Last Admin: 01/06/19 09:01 Dose: Not Given Insulin Glargine (Lantus) 15 unit SC [facility] Last Admin: 01/05/19 21:10 Dose: Not Given Insulin Human Regular (Novolin R) 0 unit SC [facility]; Protocol Last Admin: 01/06/19 08:00 Dose: Not Given Losartan Potassium (Cozaar) 12.5 mg PO DAILY [facility] Last Admin: 01/06/19 09:01 Dose: Not Given [facility] Last Admin: 01/04/19 17:53 Dose: 1,000 mg Metoprolol Tartrate (Lopressor) 5 mg IVP Q8 PRN PRN Reason: Systolic Blood Pressure Last Admin: 01/06/19 08:52 Dose: 5 mg Ondansetron HCl (Zofran Inj) 8 mg IVP Q6H PRN PRN Reason: Nausea/Vomiting Last Admin: 01/05/19 04:55 Dose: 8 mg Pantoprazole Sodium (Protonix Inj) 40 mg IVP DAILY [facility] Last Admin: 01/06/19 09:02 Dose: 40 mg Pneumococcal Polyvalent Vaccine (Pneumovax 23 Vaccine) 0.5 ml IM .ONCE ONE Stop: 01/06/19 10:01 Last Admin: 01/06/19 09:01 Dose: Not Given Rosuvastatin Calcium (Crestor) 5 mg PO [facility] Last Admin: 01/05/19 21:07 Dose: 5 mg - Labs Labs: 01/06/19 07:56 01/06/19 07:56 - Constitutional Appears: Well - Head Exam Head Exam: ATRAUMATIC, NORMAL INSPECTION, NORMOCEPHALIC - Eye Exam Eye Exam: EOMI, Normal appearance, PERRL Pupil Exam: NORMAL ACCOMODATION, PERRL - ENT Exam ENT Exam: Mucous Membranes Moist, Normal Exam - Neck Exam Neck Exam: Full ROM, Normal Inspection. absent: Lymphadenopathy - Respiratory Exam Respiratory Exam: Clear to Ausculation Bilateral, NORMAL BREATHING PATTERN - Cardiovascular Exam Cardiovascular Exam: REGULAR RHYTHM, +S1, +S2. absent: Murmur - GI/Abdominal Exam GI & Abdominal Exam: absent: Tenderness - Extremities Exam Extremities Exam: Full ROM, Normal Capillary Refill, Normal Inspection. absent: Joint Swelling, Pedal Edema - Back Exam Back Exam: NORMAL INSPECTION - Neurological Exam Neurological Exam: Alert, Awake, CN II-XII Intact, Normal Gait, Oriented x3 - Psychiatric Exam Psychiatric exam: Normal Affect, Normal Mood - Skin Skin Exam: Dry, Intact, Normal Color, Warm Assessment and Plan - Assessment and Plan (Free Text) Assessment: HTN We are looking into secondary causes of HTN. Currently, Renal US does not show hydronephrosis or nephrolithiasis; shows stable angiomyolipoma. Free AM cortisol level this morning is low after low-dose dexamethasone administration yesterday, which indicates that there is no Annette's Disease or Mcdermott's Syndrome. - Lopressor 5mg IV q8prn systolic B/P >160; Continue clonidine .2 BID, Hydralazine 100 PO Q8. - Aldosterone/Renin pending - Plasma metanephrines pending JOHN - Resolving Likely prerenal due to GI losses with a possible component of ATN 2/2 precipitous decline in BP. FeNa is .69%, consistent with a pre-renal etiology (but could also be a glomerulonephritis, given proteinuria) and BUN/Cr ratio is > 20 (at 22 today), also consistent with pre-renal etiology. Cr down to 1.4 today from 1.6 yesterday; baseline is 1.0. - Continue with NS @ 100 mls/hr Proteinuria, likely 2/2 HTN vs Diabetes vs Glomerulonephritis Ur protein is 27, microalbumin is 114.3. - Continue Losartan at 12.5, as JOHN is improving; discharge on Cozaar 25 daily Diabetes mellitus - Hold metformin due to renal function to prevent lactic acidosis - Continue medications as per primary <Abhilash Kong - Last Filed: 01/07/19 07:55> Objective - Vital Signs/Intake and Output Vital Signs (last 24 hours): Temp Pulse Resp BP Pulse Ox 98.5 F 70 20 124/50 L 98 01/06/19 23:20 01/06/19 23:20 01/06/19 23:20 01/06/19 23:20 01/06/19 23:20 Intake and Output: 01/07/19 01/07/19 06:59 18:59 Intake Total 1860 Balance 1860 - Medications Medications: Current Medications Aspirin (Ecotrin) 81 mg PO DAILY [facility] Last Admin: 01/06/19 09:01 Dose: Not Given Bisacodyl (Dulcolax) 10 mg PO ONCE ONE Stop: 01/07/19 14:01 Cilostazol (Pletal) 50 mg PO BID [facility] Last Admin: 01/06/19 18:15 Dose: 50 mg Clonidine HCl (Catapres) 0.1 mg PO Q8H PRN PRN Reason: HTN Clonidine HCl (Catapres) 0.2 mg PO BID [facility] Last Admin: 01/06/19 18:14 Dose: 0.2 mg Dextrose (Dextrose 50% Inj) 0 ml IV STAT PRN; Protocol PRN Reason: Hypoglycemia Protocol Dextrose (Glutose 15) 0 gm PO ONCE PRN; Protocol PRN Reason: Hypoglycemia Protocol Fluconazole (Diflucan) 100 mg PO DAILY [facility]; Protocol Last Admin: 01/06/19 13:49 Dose: 100 mg Glipizide (Glucotrol) 10 mg PO BID [facility] Last Admin: 01/06/19 18:15 Dose: 10 mg Glucagon (Glucagen Diagnostic Kit) 0 mg IM STAT PRN; Protocol PRN Reason: Hypoglycemia Protocol Heparin Sodium (Porcine) (Heparin) 5,000 units SC Q8 [facility] Last Admin: 01/07/19 05:58 Dose: 5,000 units Hydralazine HCl (Apresoline) 100 mg PO Q8 [facility] Last Admin: 01/05/19 13:12 Dose: 100 mg Dextrose (Dextrose 5% In Water 1000 Ml) 1,000 mls @ 0 mls/hr IV .Q0M PRN; Protocol PRN Reason: Hypoglycemia Protocol Sodium Chloride (Sodium Chloride 0.9%) 1,000 mls @ 100 mls/hr IV .Q10H [facility] Last Admin: 01/06/19 13:45 Dose: Not Given Influenza Virus Vaccine (Flucelvax Quad [id number] Syr) 60 mcg IM .ONCE ONE Stop: 01/08/19 11:01 Insulin Glargine (Lantus) 15 unit SC [facility] Last Admin: 01/06/19 21:42 Dose: 15 units Insulin Human Regular (Novolin R) 0 unit SC [facility]; Protocol Last Admin: 01/06/19 22:26 Dose: Not Given Losartan Potassium (Cozaar) 12.5 mg PO DAILY [facility] Last Admin: 01/06/19 13:10 Dose: 12.5 mg Metformin [facility]) [facility] Last Admin: 01/04/19 17:53 Dose: 1,000 mg Metoprolol Tartrate (Lopressor) 5 mg IVP Q8 PRN PRN Reason: Systolic Blood Pressure Last Admin: 01/06/19 08:52 Dose: 5 mg Ondansetron HCl (Zofran Inj) 8 mg IVP Q6H PRN PRN Reason: Nausea/Vomiting Last Admin: 01/05/19 04:55 Dose: 8 mg Pantoprazole Sodium (Protonix Ec Tab) 40 mg PO DAILY [facility] Pneumococcal Polyvalent Vaccine (Pneumovax 23 Vaccine) 0.5 ml IM .ONCE ONE Stop: 01/08/19 11:01 Rosuvastatin Calcium (Crestor) 5 mg PO [facility] Last Admin: 01/06/19 21:42 Dose: 5 mg - Labs Labs: 01/06/19 07:56 01/06/19 07:56 PT 10.5 SECONDS (9.7-12.2) 01/06/19 14:00 INR 1.0 01/06/19 14:00 APTT 32 SECONDS (21-34) 01/06/19 14:00 Attending/Attestation - Attestation I have personally seen and examined this patient.: Yes I have fully participated in the care of the patient.: Yes I have reviewed all pertinent clinical information, including history, physical exam and plan: Yes Notes (Text): Patient seen and examined; I agree with the resident's note as above with the following additions/edits: 78 yo F w/ pmh of htn, dm, PAD, admitted with intractable vomiting, nephrology following for uncontrolled HTN and JOHN; JOHN resolving; likely due to precipitous drop in BP while having some component of volume depletion and loss of renal autoregulation from ARB; HTN again uncontrolled this morning after PO meds were held for procedure; BP responding well to being given PO meds after the procedure; appears especially responsive to ARB, despite being small dose, which makes us question patient's compliance (she reports taking her meds regularly); Proteinuria seen on UA of unclear signficance as it was seen in the setting of severely uncontrolled BP; should repeat UA along with microalbumin and total urine protein/creatinine after BP well controlled; -continue current BP meds; low dose losartan for now, can d/c home on 25 mg daily; -holding hydralazine, will re-assess on current regimen; -avoid nephrotoxic agents;
[2019-01-06] MEDS ORDERED: Pneumococcal 23-Valent Vaccine IM ONE (10:00)
[2019-01-06] MEDS ORDERED: Influenza Vaccine 60 mcg/0.5 mL SYR (4YR UP) IM ONE (10:00)
[2019-01-06] MEDS ORDERED: Propofol 10 mg/ml Inj (20 ML) ONE (10:34)
[2019-01-06] MEDS ORDERED: Midazolam 2 MG/2 ML VIAL ONE (10:35)
[2019-01-06] MEDS ORDERED: Lactated Ringer's 1,000 ML IV ONE (10:40)
[2019-01-06] MEDS: Cilostazol 50 mg Tab UD PO SCH ×2 (13:02→18:15)
[2019-01-06] MEDS: Sodium Chloride 0.9% 1,000 ML IV SCH (13:45)
[2019-01-06 14:51] LABS: PROTHROMBIN TIME 10.5 SECONDS (9.7-12.2)
[2019-01-06 17:53] VITALS: RESP 20
[2019-01-06] MEDS: (Lantus) Insulin Glargine, Recombinant SC SCH (21:42)
[2019-01-07 07:55] LABS: BASO % 0.5 % (0.0-2.0); EOS # 0.2 K/uL (0.0-0.7); EOS % 1.8 % (0.0-4.0); HEMOGLOBIN 10.4 g/dL (11.0-16.0); LYMPH # 3.5 K/uL (1.0-4.3); LYMPH % 41.4 % (20.0-40.0); MEAN CELL VOLUME 82.8 fL (81.0-99.0); MEAN CORPUSCULAR HEMOGLOBIN 26.7 pg (27.0-31.0); MEAN CORPUSCULAR HGB CONC 32.3 g/dL (33.0-37.0); MEAN PLATELET VOLUME 9.1 fL (7.2-11.7); MONO # 0.6 K/uL (0.0-0.8); MONO % 7.7 % (0.0-10.0); NEUT # 4.1 K/uL (1.8-7.0); NEUT % 48.6 % (50.0-75.0); RBC 3.88 Mil/uL (3.80-5.20); RED CELL DISTRIBUTION WIDTH 14.3 % (11.5-14.5); WHITE BLOOD COUNT 8.4 K/uL (4.8-10.8)
[2019-01-07 08:09] LABS: ALB/GLOB RATIO 1.2 (1.0-2.1); ALBUMIN 3.1 g/dL (3.5-5.0); CALCIUM 8.7 mg/dl (8.6-10.4)
[2019-01-07 08:18] VITALS: BP 128/53; PULSE 60; TEMP 98.1; O2SAT 96
--- NOTE | 2019-01-07 08:35 | PN ---
DATE: 01/07/2019 LOCATION: 658, bed B. SUBJECTIVE: This is an 78-year-old female post upper endoscopy with biopsy yesterday, with intermittent periods of abdominal pain with mild nausea, dyspepsia, but no reported actual chest pain, palpitation, significant increase of shortness of breath, chills, or reported fever. The entire chart is reviewed including the most recent lab results with today's blood glucose level of 162. PHYSICAL EXAMINATION: GENERAL: An 78-year-old female, awake, alert, oriented. VITAL SIGNS: Afebrile, seen with the staff in rounds, with heart rate of 72, respiratory rate 20-22 with blood pressure 130/58. HEENT: Showed mildly pale, dry oral mucous membrane. Nonicteric sclerae. LUNGS: Few scattered crepitation. Decreased air entry at bases. HEART: Positive S1, S2. ABDOMEN: Soft with mild generalized tenderness mainly in the left lower quadrant area in the midepigastric area. No mass or organomegaly. No rebound tenderness or guarding. EXTREMITIES: Without significant edema, clubbing or cyanosis. No reported new neurological deficits, sensory or motor. IMPRESSION: 1. Re-exacerbation of peptic ulcer disease with evidence of esophageal candidiasis and gastric ulcer with gastritis by recent upper endoscopy, biopsy report is still pending. 2. Known history of diabetes mellitus, poorly controlled hypertension, possible diabetic gastroparesis, peripheral vascular disease with hyperlipidemia. 3. Dehydration with mild renal insufficiency. SUGGESTIONS: 1. Agree with your plan. 2. Follow up on cancer markers. 3. The patient may need endoscopic evaluation of the lower GI tract, further recommendation to follow. Ginger Cabrera MD
[2019-01-07] MEDS: (Novolin R) Insulin Human Regular 100 units/ml vial SC SCH ×2 (08:38→12:00)
[2019-01-07] MEDS: Sodium Chloride 0.9% 1,000 ML IV SCH (08:46)
[2019-01-07] MEDS ORDERED: Pantoprazole 40 mg EC Tab PO SCH (10:00)
[2019-01-07] MEDS: Cilostazol 50 mg Tab UD PO SCH (10:35)
[2019-01-07] MEDS ORDERED: Losartan 12.5 MG TAB PO SCH (10:45)
[2019-01-07 11:41] LABS: PROTHROMBIN TIME 10.7 SECONDS (9.7-12.2)
[2019-01-07] MEDS ORDERED: Bisacodyl 5mg EC Tab PO ONE (14:00)
[2019-01-07] MEDS ORDERED: Influenza Vaccine 60 mcg/0.5 mL SYR (4YR UP) IM ONE (14:00)
[2019-01-07] MEDS ORDERED: Pneumococcal 23-Valent Vaccine IM ONE (14:00)
--- NOTE | 2019-01-07 20:11 | CARD ---
APPROVED REPORT Date of service: 01/02/2019 EKG Measurement Heart [id number] <Conclusion> Normal sinus rhythm with sinus arrhythmia Left axis deviation Right bundle branch block Minimal voltage criteria for LVH, may be normal variant Inferior infarct, age undetermined Anterior infarct, age undetermined Abnormal ECG
[2019-01-08] MEDS ORDERED: Pneumococcal 23-Valent Vaccine IM ONE (11:00)
[2019-01-08] MEDS ORDERED: Influenza Vaccine 60 mcg/0.5 mL SYR (4YR UP) IM ONE (11:00)
--- NOTE | 2019-01-09 14:20 | CON ---
DATE: 01/04/[address] Cabrera to Dr. Samson Yin. I was called for a GI consultation by the admitting medical team. The patient is seen and fully examined on 01/04/2019 as requested by the admitting medical staff. The entire chart is reviewed including but not limited to most recent lab and radiology study results, current and the previous medication list, current and the previous medical events, allergy to medication list as well as all the available current and the previous medical records. Case discussed with the staff at length. A short handwritten consultation sheet was left in the chart at the time of my GI consultation on 01/04/2019. This is an 78-year-old female who was admitted to the hospital through the emergency room with recurrent episodes of nausea, dyspepsia and vomiting with generalized weakness and malaise, poor oral intake with loss of appetite for few days prior to her admission. No reported chest pain, palpitation or significant reported shortness of breath. No reported active bleeding. Past medical history including but not limited to, 1. Hypertension. 2. Hyperlipidemia. 3. Peptic ulcer disease. 4. Coronary artery disease with status post cardiac stent insertion. FAMILY HISTORY: Unknown. SOCIAL HISTORY: No reported recent history of cigarette smoking or alcohol intake. CURRENT MEDICATIONS: Post-admission medication lists were reviewed. ALLERGIES TO MEDICATIONS: UNKNOWN. LABORATORY DATA: Initial blood workup showed normal CBC initially with blood glucose level of 270, but normal liver function test. Abdomen and pelvic CAT scan, official report is seen, including a moderate hiatus hernia. PHYSICAL EXAMINATION: GENERAL: An 78-year-old female, appears to be awake, alert. VITAL SIGNS: Afebrile with pulse of 74, respiratory rate 20 to 22 with blood pressure 188/98. HEENT: Showed pale dry oral mucous membrane. Nonicteric sclerae. LUNGS: Few scattered crepitation. Decreased air entry at bases. HEART: Positive S1 and S2. ABDOMEN: Soft with generalized tenderness and mild distention. No mass or organomegaly. No rebound tenderness or guarding, but midepigastric and midabdominal line tenderness. RECTAL: The patient refused. EXTREMITIES: With lower extremities mild edematous changes. No clubbing or cyanosis. NEUROLOGIC: No reported new neurological deficits, sensory or motor. No reported new focal deficits. IMPRESSION: 1. Re-exacerbation of peptic ulcer disease, to rule out gastric versus duodenal ulcer. 2. An episode of hyperglycemia with possible and early stage of diabetes mellitus and diabetic gastroparesis. 3. Multiple past medical history. Ginger Cabrera MD
--- NOTE | 2019-01-11 20:34 | DS ---
HOSPITAL COURSE: The patient was admitted to the hospital with a chief complaint of nausea, vomiting, and abdominal pain. The patient came with increased blood pressure. The patient was placed on bedrest, IV fluids, symptomatic treatment, and endoscopy. Seen by Renal. The patient improved. Discharged to be followed up as outpatient. DISCHARGE DIAGNOSES: gastritis, hypertension, renal failure. Kacy Toussaint MD
== END 2019-01-07 15:15 | disposition home or self-care (01) | DRG 383 ==
LOC: C.ER 13:22 → C.9E 16:37 → C.6T 17:43
PROVIDERS: ADMIT Hospitalist; ATTEND Internal Medicine Pulmonary Disease
PROC: 0DB68ZX Excision of Stomach, Via Natural or Artificial Opening Endoscopic, Diagnostic (ICD-10-PCS; principal; 2019-01-06 10:40)
DX: K25.9 Gastric ulcer, unspecified as acute or chronic, without hemorrhage or perforation (principal); N17.0 Acute kidney failure with tubular necrosis; B37.81 Candidal esophagitis; K29.60 Other gastritis without bleeding; K52.9 Noninfective gastroenteritis and colitis, unspecified; E86.0 Dehydration; E11.51 Type 2 diabetes mellitus with diabetic peripheral angiopathy without gangrene; K44.9 Diaphragmatic hernia without obstruction or gangrene; E11.43 Type 2 diabetes mellitus with diabetic autonomic (poly)neuropathy; K31.84 Gastroparesis; I10 Essential (primary) hypertension; I25.10 Atherosclerotic heart disease of native coronary artery without angina pectoris; M17.11 Unilateral primary osteoarthritis, right knee; E78.5 Hyperlipidemia, unspecified; E78.00 Pure hypercholesterolemia, unspecified; Z95.820 Peripheral vascular angioplasty status with implants and grafts; Z95.5 Presence of coronary angioplasty implant and graft; Z82.49 Family history of ischemic heart disease and other diseases of the circulatory system